=== PATIENT | male | born 1985 | race African-American/Black ===

== ENCOUNTER 2017-09-16 05:56 | Inpatient (IN) | payer OTHER ==
[2017-09-08 11:47] VITALS: BMI 35.2
--- NOTE | 2017-09-15 08:44 | HP ---
Admitting History and Physical - Admission History of Present Illness: Patient is a 32 y/o obese male with a past medical history of developmental delay, PNA (intubated hospitalizated at [facility] for 1 month) asthma, eczema, and hypoparathyroidism. Patient has a past surgical history of bilateral patella re-allignment. Patient is scheduled for an elective right knee supracondylar osteotomy scheduled lola Vogel 09/16/17. History Source: Patient Limitations to Obtaining History: No Limitations - Smoking History Smoking history: Never smoked - Alcohol/Substance Use Hx Alcohol Use: Yes (occasional) History of Substance Use: reports: None - Social History Usual Living Arrangement: Yes: With Parent ADL: Independent Occupation: disabled Home Medications - Allergies Allergies/Adverse Reactions: Allergies Allergy/AdvReac Type Severity Reaction Status Date / Time Penicillins Allergy Rash Verified 09/08/17 11:31 piperacillin Allergy Rash Verified 09/08/17 11:56 - Home Medications Home Medications: Ambulatory Orders Albuterol 0.083% Nebulizer Krista [Ventolin 0.083%] 1 neb NEB QID 09/08/17 Atorvastatin Ca [Lipitor] 10 mg PO HS 09/08/17 Budesonide/Formeterol Fumarate [SYMBICORT 160/4.5mcg -] 1 inh PO DAILY 09/08/17 Calcitriol [Rocaltrol -] 0.75 mcg PO DAILY 09/08/17 Calcium Carbonate 1,250 mg PO DAILY 09/08/17 Ipratropium/Albuterol Sulfate [Combivent Respimat Inhal Viola] 4 gm IH DAILY 05/24 Tramadol HCl 50 mg PO Q4H PRN 09/08/17 Family Disease History - Family Disease History Family History: Denies Review of Systems - Review of Systems Constitutional: reports: No Symptoms Eyes: reports: No Symptoms HENT: reports: No Symptoms Neck: reports: No Symptoms Cardiovascular: reports: No Symptoms Respiratory: reports: No Symptoms Gastrointestinal: reports: No Symptoms Genitourinary: reports: No Symptoms Musculoskeletal: reports: No Symptoms Integumentary: reports: No Symptoms Neurological: reports: No Symptoms Endocrine: reports: No Symptoms Hematology/Lymphatic: reports: No Symptoms Psychiatric: reports: No Symptoms Physical Examination Constitutional: Yes: Well Nourished, No Distress, Calm Eyes: Yes: WNL, Conjunctiva Clear, EOM Intact HENT: Yes: WNL, Atraumatic, Normocephalic Neck: Yes: WNL, Supple, Trachea Midline Cardiovascular: Yes: WNL, Regular Rate and Rhythm, S1, S2 Respiratory: Yes: WNL, Regular, CTA Bilaterally Gastrointestinal: Yes: WNL, Normal Bowel Sounds, Soft ...Rectal Exam: Yes: Deferred Renal/: Yes: WNL Musculoskeletal: Yes: Joint Stiffness, Other (right knee pain reports history of "buckling" of right knee) Extremities: Yes: Deformity (right knee deformity) Edema: No Peripheral Pulses WNL: No Integumentary: Yes: WNL Neurological: Yes: WNL, Alert, Oriented ...Motor Strength: WNL Psychiatric: Yes: WNL, Alert, Oriented Labs: reviewed 08/18/17 Imaging - Results EKG: Image Reviewed, Other (nsr) Assessment/Plan 1) MS right knee pain w/deformity - pending scheduled surgery 09/16/17, right supracondylar osteomy 2) asthma - reports excerbation in fall and spring - continue symbicort and albuterol prn 3) cardiovascular hyperlipidemia - continue lipitor - cardiology notes resolved from patient's private furniture fabricator, Dr Gilmore, last nuclear stress test 2014 wnl pt is medically optimized for procedure
[2017-09-16] MEDS ORDERED: DEXAMETHASONE SOD PHOSPHATE/PF 10 MG/ML SDV ONE (07:39)
[2017-09-16] MEDS ORDERED: BUPIVACAINE HCL/PF (5 MG/ML) 30 ML VIAL IJ ONE (07:39)
[2017-09-16] MEDS ORDERED: MIDAZOLAM HCL 2 MG/2 ML SINGLE DOSE VIAL ONE (07:39)
[2017-09-16] MEDS ORDERED: VANCOMYCIN 1,000 MG VIAL (RESTRICTED TO ID ONLY) ONE (07:44)
[2017-09-16] MEDS ORDERED: DEXAMETHASONE SOD PHOSPHATE 4 MG/1 ML VIAL ONE (09:10)
[2017-09-16] MEDS ORDERED: TRANEXAMIC ACID 1000 MG/10 ML VIAL ONE ×2 (09:10→11:11)
[2017-09-16] MEDS ORDERED: ONDANSETRON 4 MG/2 ML VIAL ONE (09:10)
[2017-09-16] MEDS ORDERED: BENZOIN/ALOE VERA/STORAX/TOLU 58 ML BOTTLE ONE (11:36)
[2017-09-16] MEDS ORDERED: ONDANSETRON 4 MG/2 ML VIAL IVPUSH PRN (12:09)
[2017-09-16] MEDS ORDERED: oxyCODONE HCL 5 MG TABLET PO PRN (12:10)
[2017-09-16] MEDS ORDERED: LACTATED RINGERS SOLUTION 1,000 ML IV SCH ×2 (12:15→12:30)
--- NOTE | 2017-09-16 12:17 | OP ---
Operative Note - Note: Operative Date: 09/16/17 Pre-Operative Diagnosis: 1. Right knee valgus deformity. 2. Recurrent right lateral patellar instability Operation: Distal femoral medial closing wedge osteotomy with instrumentation. Implants: Synthes 90 degree hip Blade Plate, 65mm length, 15mm offset Post-Operative Diagnosis: Same as Pre-op Surgeon: Wesley Vogel Ladle Liner: Al Vogel Anesthesiologist/GUN PROFILER: Pearl Gutierrez Anesthesia: Spinal Specimens Removed: Bone Estimated Blood Loss (mls): 0 Drains & Tubes with Location: 1 x deep HemoVac Fluid Volume Replaced (mls): 1,000 Operative Report Dictated: Yes
[2017-09-16] MEDS ORDERED: MAG HYDROX/AL HYDROX/SIMETH 30 ML UNIT-DOSE CUP PO PRN (12:20)
[2017-09-16] MEDS ORDERED: MAGNESIUM HYDROX 2400MG/30ML ORAL SUSPENSION 30 ML CUP PO PRN (12:20)
--- NOTE | 2017-09-16 12:20 | PN ---
Progress Note (short form) - Note Progress Note: 32M s/p right distal femoral medial closing wedge osteotomy with instrumentation POD #0. -Pain control: NAIL MAKER. -DVT PPx: - Chemical: ASA 81mg PO BID x 6 weeks - Mechanical: NEIL's, SCD's. -Incentive spirometry. -PT/OT/Rehab, OOB. -NWB RLE. -Gentle ROM R knee OK. -f/u drain output. -f/u post-op trial of void. -f/u AM labs. -Will order [place] brace for patient. -Care per medical hospitalist team. -Discharge planning: f/u Thursday09/25/2017 at [facility] [place] office; call for appointment; . -Will follow. Wesley Vogel MD (Orthopaedic Surgery).
[2017-09-16] MEDS: ACETAMINOPHEN 325 MG TABLET (FP) PO SCH ×2 (12:30→18:05)
[2017-09-16] MEDS: oxyCODONE HCL 5 MG TABLET PO PRN ×2 (16:28→21:38)
[2017-09-16] MEDS ORDERED: VANCOMYCIN 1,500 MG in DEXTROSE 5%-WATER - 500 ML IVPB ONE (20:00)
[2017-09-16] MEDS: oxyCODONE HCL 10 MG SUSTAINED ACTING TABLET PO SCH (21:35)
[2017-09-16] MEDS: ASPIRIN 81 MG CHEWABLE TABLETS PO SCH (21:35)
[2017-09-16] MEDS: GABAPENTIN 300 MG CAPSULE (FP) PO SCH (21:35)
[2017-09-16] MEDS: SENNOSIDES/DOCUSATE COMBO (SENNA PLUS) TABLET (UD) PO SCH (21:35)
[2017-09-17] MEDS: ACETAMINOPHEN 325 MG TABLET (FP) PO SCH ×4 (00:16→17:48)
[2017-09-17] MEDS: oxyCODONE HCL 5 MG TABLET PO PRN ×2 (03:26→17:51)
[2017-09-17] MEDS ORDERED: SODIUM CHLORIDE 500 ML IV STA (05:38)
--- NOTE | 2017-09-17 05:44 | HOSP ---
Subjective - Review of Symptoms Events since last encounter: Hospitalist Encounter Notified via telephone by the RN that the patient's HR is in the 120's Patient is at the [facility] Assessment Patient is a 32 y/o obese male with a past medical history of developmental delay, PNA (intubated hospitalizated at [facility] for 1 month) asthma, eczema, and hypoparathyroidism. s/p right knee supracondylar osteotomy POD#1 Plan: Stat EKG Rectal temp Per RN, EKG showed ST with non-specific T waves Rectal temp 100.6 Ordered: NS 500ml bolus Blood Cultures x2 Urine Culture UA Lactic Acid Cardiac monitoring Will inform daytime METAL RECLAMATION KETTLE TENDER provider of overnight events, for f/u Physical Examination Vital Signs: Vital Signs Temperature 99.4 F 09/17/17 04:00 Pulse Rate 124 H 09/17/17 04:00 Respiratory Rate 20 09/17/17 04:00 Blood Pressure 133/58 09/17/17 04:00 O2 Sat by Pulse Oximetry (%) 96 09/16/17 23:36 Labs: Current Medications Generic Name Dose Route Start Last Admin Trade Name Freq PRN Reason Stop Dose Admin Acetaminophen 650 mg 09/16/17 12:30 09/17/17 00:16 Tylenol - PO 09/19/17 12:29 650 mg Q6H EUNICE Administration Al Hydroxide/Mg Hydroxide 30 ml 09/16/17 12:20 Mylanta Oral Suspension - PO Q4H PRN DYSPEPSIA Aspirin 81 mg 09/16/17 22:00 09/16/17 21:35 Asa - PO 81 mg BID EUNICE Administration Budesonide/Formoterol Fumarate 1 puff 09/17/17 10:00 Symbicort 160/4.5mcg - IH DAILY EUNICE Fentanyl 50 mcg 09/16/17 12:09 Sublimaze Injection - IVPUSH [id number] PRN PAIN-PACU ORDER X 4 DOSES ONLY Gabapentin 300 mg 09/16/17 22:00 09/16/17 21:35 Neurontin - PO 300 mg BID EUNICE Administration Lactated Ringer's 1,000 mls @ 125 mls/hr 09/16/17 12:30 09/16/17 15:17 Lactated Ringers Solution IV 09/17/17 06:00 Not Given ASDIR EUNICE Sodium Chloride 500 mls @ 500 mls/hr 09/17/17 05:38 Normal Saline - IV 09/17/17 06:37 ASDIR STA Magnesium Hydroxide 30 ml 09/16/17 12:20 Milk Of Magnesia - PO PRN PRN CONSTIPATION Non-Formulary Medication 4 gm 09/17/17 10:00 Ipratropium/Albuterol Sulfate [Combivent Respimat 20-100 Mcg] IH DAILY EUNICE Ondansetron HCl 4 mg 09/16/17 12:20 Zofran Injection IVPUSH Q6H PRN NAUSEA Oxycodone HCl 5 mg 09/16/17 12:10 09/16/17 12:30 Roxicodone - PO 5 mg Q3H PRN Administration PAIN LEVEL 1-5 Oxycodone HCl 10 mg 09/16/17 12:10 09/17/17 03:26 Roxicodone - PO 10 mg Q3H PRN Administration PAIN LEVEL 6-10 Oxycodone HCl 10 mg 09/16/17 22:00 09/16/17 21:35 Oxycontin - PO 09/19/17 12:10 10 mg BID EUNICE Administration Pantoprazole Sodium 40 mg 09/17/17 10:00 Protonix - PO DAILY [facility] Senna/Docusate Sodium 2 tablet 09/16/17 22:00 09/16/17 21:35 Pericolace - PO 2 tablet BID EUNICE Administration Intake & Output 09/14/17 09/15/17 09/16/17 09/17/17 23:59 23:59 23:59 23:59 Intake Total 1600 Output Total 950 380 Balance 650 -380 Weight 102.058 kg Last Vital Signs Temp Pulse Resp BP Pulse Ox 99.4 F 124 H 20 133/58 96 09/17/17 04:00 09/17/17 04:00 09/17/17 04:00 09/17/17 04:00 09/16/17 23:36
[2017-09-17 08:58] LABS: ANION GAP 9 (8-16); BLOOD UREA NITROGEN 10 mg/dl (7-18); CALCIUM 7.8 mg/dl (8.4-10.2); CHLORIDE 97 mmol/L (98-107); CO2 27 mmol/L (22-28); GLUCOSE,RANDOM 166 mg/dl (74-106); POTASSIUM 3.5 mmol/L (3.5-5.1); SODIUM 133 mmol/L (136-145)
--- NOTE | 2017-09-17 09:06 | CONSULT ---
Consultation: REQUESTING PROVIDER: Dr Vogel CONSULT REQUEST: We have been asked to medically evaluate this patient for medical management. HISTORY OF PRESENT ILLNESS: Patient is a 32 y/o male with a past medical history of developmental delay, PNA (intubated hospitalizated at [facility] for 1 month) asthma, eczema, and hypoparathyroidism. Patient has a past surgical history of bilateral patella re-allignment. Patient underwent an elective right knee supracondylar osteotomy, Dr Vogel post op day 1. REVIEW OF SYSTEMS: CONSTITUTIONAL: Absent: fever, chills, diaphoresis, generalized weakness, malaise, loss of appetite, weight change HEENT: Absent: rhinorrhea, nasal congestion, throat pain, throat swelling, difficulty swallowing, mouth swelling, ear pain, eye pain, visual changes CARDIOVASCULAR: Absent: chest pain, syncope, palpitations, irregular heart rate, lightheadedness , peripheral edema RESPIRATORY: Absent: cough, shortness of breath, dyspnea with exertion, orthopnea, wheezing, stridor, hemoptysis GASTROINTESTINAL: Absent: abdominal pain, abdominal distension, nausea, vomiting, diarrhea, constipation, melena, hematochezia GENITOURINARY: Absent: dysuria, frequency, urgency, hesitancy, hematuria, flank pain, genital pain MUSCULOSKELETAL: present: right knee pain Absent: myalgia, arthralgia, joint swelling, back pain, neck pain SKIN: Absent: rash, itching, pallor HEMATOLOGIC/IMMUNOLOGIC: Absent: easy bleeding, easy bruising, lymphadenopathy, frequent infections ENDOCRINE: Absent: unexplained weight gain, unexplained weight loss, heat intolerance, cold intolerance NEUROLOGIC: Absent: headache, focal weakness or paresthesias, dizziness, unsteady gait, seizure, mental status changes, bladder or bowel incontinence PSYCHIATRIC: Absent: anxiety, depression, suicidal or homicidal ideation, hallucinations. PHYSICAL EXAMINATION Vital Signs - 24 hr 09/16/17 09/16/17 09/16/17 12:03 12:05 12:10 Temperature 98 F Pulse Rate 83 87 80 Respiratory 14 16 18 Rate Blood Pressure 119/68 137/85 131/78 O2 Sat by Pulse 99 100 100 Oximetry (%) 09/16/17 09/16/17 09/16/17 12:15 12:30 12:45 Temperature Pulse Rate 90 84 87 Respiratory 18 18 18 Rate Blood Pressure 120/72 120/87 131/84 O2 Sat by Pulse 100 100 100 Oximetry (%) 09/16/17 09/16/17 09/16/17 13:00 13:15 13:30 Temperature Pulse Rate 89 87 89 Respiratory 18 18 Rate Blood Pressure 132/80 122/76 126/83 O2 Sat by Pulse 95 95 95 Oximetry (%) 09/16/17 09/16/17 09/16/17 13:45 13:48 15:08 Temperature 98.6 F Pulse Rate 87 87 94 H Respiratory 18 18 18 Rate Blood Pressure 129/70 129/70 142/79 O2 Sat by Pulse 99 98 Oximetry (%) 09/16/17 09/16/17 09/16/17 20:00 20:04 20:05 Temperature 98.7 F Pulse Rate 112 H Respiratory 20 18 Rate Blood Pressure 140/62 O2 Sat by Pulse 97 98 Oximetry (%) 09/16/17 09/17/17 09/17/17 23:36 04:00 05:30 Temperature 99.0 F 99.4 F 100.6 F H Pulse Rate 114 H 124 H Respiratory 18 20 Rate Blood Pressure 115/49 133/58 O2 Sat by Pulse 96 Oximetry (%) 09/17/17 06:17 Temperature 100.5 F H Pulse Rate 120 H Respiratory Rate Blood Pressure 131/62 O2 Sat by Pulse 97 Oximetry (%) GENERAL: Awake, alert, and fully oriented, in no acute distress. HEAD: Normal with no signs of trauma. EYES: Pupils equal, round and reactive to light, extraocular movements intact, sclera anicteric, conjunctiva clear. No lid lag. EARS, NOSE, THROAT: Ears normal, nares patent, oropharynx clear without exudates. Moist mucous membranes. NECK: Normal range of motion, supple without lymphadenopathy, JVD, or masses. LUNGS: Breath sounds equal, clear to auscultation bilaterally. No wheezes, and no crackles. No accessory muscle use. HEART: Regular rate and rhythm, normal S1 and S2 without murmur, rub or gallop. ABDOMEN: Soft, nontender, not distended, normoactive bowel sounds, no guarding, no rebound, no masses. No hepatomegaly or splenomegaly. MUSCULOSKELETAL: Normal range of motion at all joints. No bony deformities or tenderness. No CVA tenderness. UPPER EXTREMITIES: 2+ pulses, warm, well-perfused. No cyanosis. No clubbing. Cap refill <2 seconds. No peripheral edema. LOWER EXTREMITIES: 2+ pulses, warm, well-perfused. No calf tenderness. No peripheral edema. right lower extremity, SCD/NEIL, hemovac drain intact, scan drainage noted NEUROLOGICAL: Cranial nerves II-XII intact. Normal speech. Normal gait. PSYCHIATRIC: Cooperative. Good eye contact. Appropriate mood and affect. SKIN: Warm, dry, normal turgor, no rashes or lesions noted. Active Medications Generic Name Dose Route Start Last Admin Trade Name Freq PRN Reason Stop Dose Admin Acetaminophen 650 mg 09/16/17 12:30 09/17/17 05:35 Tylenol - PO 09/19/17 12:29 650 mg Q6H EUNICE Administration Al Hydroxide/Mg Hydroxide 30 ml 09/16/17 12:20 Mylanta Oral Suspension - PO Q4H PRN DYSPEPSIA Aspirin 81 mg 09/16/17 22:00 09/16/17 21:35 Asa - PO 81 mg BID EUNICE Administration Budesonide/Formoterol Fumarate 1 puff 09/17/17 10:00 Symbicort 160/4.5mcg - IH DAILY [facility] Gabapentin 300 mg 09/16/17 22:00 09/16/17 21:35 Neurontin - PO 300 mg BID [facility] Administration Magnesium Hydroxide 30 ml 09/16/17 12:20 Milk Of Magnesia - PO PRN PRN CONSTIPATION Non-Formulary Medication 4 gm 09/17/17 10:00 Ipratropium/Albuterol Sulfate [Combivent Respimat 20-100 Mcg] IH DAILY [facility] Ondansetron HCl 4 mg 09/16/17 12:20 Zofran Injection IVPUSH Q6H PRN NAUSEA Oxycodone HCl 5 mg 09/16/17 12:10 09/16/17 12:30 Roxicodone - PO 5 mg Q3H PRN Administration PAIN LEVEL 1-5 Oxycodone HCl 10 mg 09/16/17 12:10 09/17/17 03:26 Roxicodone - PO 10 mg Q3H PRN Administration PAIN LEVEL 6-10 Oxycodone HCl 10 mg 09/16/17 22:00 09/16/17 21:35 Oxycontin - PO 09/19/17 12:10 10 mg BID [facility] Administration Pantoprazole Sodium 40 mg 07/12/18 10:00 Protonix - PO DAILY EUNICE Senna/Docusate Sodium 2 tablet 09/16/17 22:00 09/16/17 21:35 Pericolace - PO 2 tablet BID EUNICE Administration ASSESSMENT/PLAN: 1) MS s/p right distal femoral medial closing wedge osteotomy with instrumentation, POD #1 - strict monitoring of intake and output from hemovac drain, monitor hgb - prn pain medication - physical therapy as per orthopedist, non weight bearing as tolerated 2) cardiovascular tachycardia - pt is asymptomatic, may be secondary to low grade temp, will defer antibiotics, follow up blood and urine cultures. - strict monitoring hyperlipidemia - continue lipitor - cardiology notes resolved from patient's private prison teacher, Dr Gilmore, last nuclear stress test 2015 wnl 3) pulm asthma - no acute excerbation at this time, continue home dose combivent -strict monitoring of spo2 4) heme/onc lactic acidosis - secondary to hypovolemia, 1 liter of ns given, repeat lactic acid at 1300 Dispo: We will continue to follow the patient. Thank you for this consultative opportunity. Visit type - Emergency Visit Emergency Visit: No - New Patient This patient is new to me today: No - Critical Care Critical Care patient: No
[2017-09-17 09:25] LABS: HEMATOCRIT 31.5 % (35.4-49); HEMOGLOBIN 10.7 GM/dl (11.7-16.9); MCH 28.2 pg (25.7-33.7); MCHC 33.8 g/dl (32.0-35.9); MEAN CELL VOLUME 83.4 fl (80-96); MEAN PLT VOLUME 10.9 fl (7.5-11.1); PLATELET COUNT 147 K/MM3 (134-434); RBC 3.78 M/mm3 (4.00-5.60); RDW 17.7 % (11.9-15.9); WHITE BLOOD COUNT 12.5 K/mm3 (4.0-10.8)
[2017-09-17] MEDS ORDERED: PT OWN MED DRAWER 7, Y5N ONE (09:25)
[2017-09-17] MEDS: SENNOSIDES/DOCUSATE COMBO (SENNA PLUS) TABLET (UD) PO SCH ×2 (09:28→21:53)
[2017-09-17] MEDS: GABAPENTIN 300 MG CAPSULE (FP) PO SCH ×2 (09:28→21:53)
[2017-09-17] MEDS: ASPIRIN 81 MG CHEWABLE TABLETS PO SCH ×2 (09:28→21:53)
[2017-09-17] MEDS: PANTOPRAZOLE 40 MG TABLET (FP) PO SCH (09:28)
[2017-09-17] MEDS: oxyCODONE HCL 10 MG SUSTAINED ACTING TABLET PO SCH ×2 (09:29→21:53)
[2017-09-17] MEDS: BUDESONIDE/FORMETEROL FUMARATE 160/4.5 mcg INHALER IH SCH (09:39)
[2017-09-17] MEDS ORDERED: SODIUM CHLORIDE 1,000 ML IV STA (09:43)
[2017-09-17] MEDS ORDERED: ACETAMINOPHEN 1000 MG/100 ML VIAL (NON FORMULARY) IVPB ONE (10:00)
[2017-09-17] MEDS ORDERED: PATIENT'S OWN MEDICATION (NON-FORMULARY) (Ipratropium/Albuterol Sulfate [Combivent Respima IH SCH (10:00)
[2017-09-17 10:28] LABS: PH,URINE 6.5 (4.5-8); URINE APPEARANCE Clear; URINE BILIRUBIN Negative (NEGATIVE); URINE COLOR Amber; URINE GLUCOSE (UA) Negative (NEGATIVE); URINE KETONE Negative (NEGATIVE); URINE LEUK ESTERASE Negative (NEGATIVE); URINE NITRITE Negative (NEGATIVE); URINE PROTEIN Negative (NEGATIVE); URINE UROBILINOGEN 0.2 (0.2-1.0)
--- NOTE | 2017-09-17 13:18 | PN ---
Progress Note (short form) - Note Progress Note: 32M POD1 s/p R knee supracondylar osteotomy under spinal anesthetic with peripheral nerve blocks for post operative pain relief. Pt states that pain is well controlled and does not report any anesthetic complications. AVSS. Motor and sensory function intact in bilateral lower extremities. Continue current regimen.
[2017-09-17] MEDS ORDERED: METOPROLOL TARTRATE 25 MG TABLET (FP) PO ONE (20:55)
[2017-09-17] MEDS ORDERED: SODIUM CHLORIDE 1,000 ML IV SCH (21:00)
[2017-09-18] MEDS: ACETAMINOPHEN 325 MG TABLET (FP) PO SCH ×4 (00:08→18:32)
[2017-09-18] MEDS ORDERED: SODIUM CHLORIDE 500 ML IV STA ×2 (00:33→05:55)
[2017-09-18] MEDS: SODIUM CHLORIDE 1,000 ML IV SCH (03:40)
[2017-09-18] MEDS: ONDANSETRON 4 MG/2 ML VIAL IVPUSH PRN ×2 (05:25→07:45)
--- NOTE | 2017-09-18 05:42 | HOSP ---
Subjective - Review of Symptoms Events since last encounter: Hospitalist Encounter Was notified by the nurse that the patient is febrile 103.2 with a HR 150 EKG as ordered, Dr. Solano from the ED reviewed EKG and reports no change compared to prior study Per RN he informed Dr. Vogel of patient's HR and Temp, per RN no antibiotics at this time Assessment Patient is a 32 y/o obese male with a past medical history of developmental delay, PNA (intubated hospitalizated at [facility] for 1 month) asthma, eczema, and hypoparathyroidism. s/p right knee supracondylar osteotomy POD#2 Plan: NS bolus Transfer patient to Telemetry at the [facility] ID consult placed prior-pending Considered ABX, in lieu of Initial Lactate 3.6, WBC 12.5 will defer to Ortho and ID RN to inform Ortho of the transfer Physical Examination Vital Signs: Vital Signs Temperature 103.0 F H 09/18/17 05:25 Pulse Rate 147 H 09/18/17 05:25 Respiratory Rate 18 09/18/17 05:25 Blood Pressure 114/54 09/18/17 05:25 O2 Sat by Pulse Oximetry (%) 98 09/18/17 05:25 Labs: CBC, BMP 09/17/17 07:30 09/17/17 07:30
[2017-09-18] MEDS ORDERED: PT OWN MED DRAWER 7, Y5N ONE (08:35)
--- NOTE | 2017-09-18 08:43 | EKG ---
Test Reason : Blood Pressure : / mmHG Vent. Rate : 135 BPM Atrial Rate : 135 BPM P-R Int : 120 ms QRS Dur : 084 ms QT Int : 306 ms P-R-T Axes : 038 005 015 degrees QTc Int : 459 ms SINUS TACHYCARDIA NONSPECIFIC T WAVE ABNORMALITY ABNORMAL ECG NO PREVIOUS ECGS AVAILABLE Confirmed by HIPOLITO FRANCISCO MD ([id number]) on 09/18/2017 8:43:13 AM Referred By: Wesley Vogel Confirmed By:HIPOLITO FRANCISCO MD
[2017-09-18 09:03] LABS: BASO % 0.1 % (0-2.0); EOS % 2.2 % (0-4.5); HEMATOCRIT 35.4 % (35.4-49); HEMOGLOBIN 11.4 GM/dL (11.7-16.9); LYMPH % 3.4 % (8-40); MCH 26.9 pg (25.7-33.7); MCHC 32.3 g/dl (32.0-35.9); MEAN CELL VOLUME 83.3 fl (80-96); MEAN PLT VOLUME 10.7 fl (7.5-11.1); MONO % 3.5 % (3.8-10.2); NEUT % 90.8 % (42.8-82.8); PLATELET COUNT 165 K/MM3 (134-434); RBC 4.25 M/mm3 (4.00-5.60); RDW 19.1 % (11.9-15.9)
[2017-09-18 09:10] LABS: ALBUMIN 2.7 g/dl (3.4-5.0); ANION GAP 10 (8-16); BLOOD UREA NITROGEN 11 mg/dL (7-18); CALCIUM 7.7 mg/dL (8.5-10.1); CHLORIDE 104 mmol/L (98-107); CO2 27 mmol/L (21-32); GLUCOSE,RANDOM 102 mg/dL (74-106); POTASSIUM 3.7 mmol/L (3.5-5.1); SGOT/AST 14 U/L (15-37); SGPT/ALT 18 U/L (12-78); SODIUM 141 mmol/L (136-145)
[2017-09-18 09:12] LABS: BILIRUBIN,TOTAL 0.4 mg/dL (0.2-1.0); TOT PROT 5.9 g/dl (6.4-8.2)
[2017-09-18 09:13] LABS: ALK PHOS 56 U/L (45-117)
[2017-09-18] MEDS: SENNOSIDES/DOCUSATE COMBO (SENNA PLUS) TABLET (UD) PO SCH ×2 (09:39→21:02)
[2017-09-18] MEDS: PANTOPRAZOLE 40 MG TABLET (FP) PO SCH (09:39)
[2017-09-18] MEDS: oxyCODONE HCL 10 MG SUSTAINED ACTING TABLET PO SCH ×2 (09:39→21:02)
[2017-09-18] MEDS: ASPIRIN 81 MG CHEWABLE TABLETS PO SCH ×2 (09:40→21:02)
[2017-09-18] MEDS: GABAPENTIN 300 MG CAPSULE (FP) PO SCH ×2 (09:40→21:02)
--- NOTE | 2017-09-18 09:55 | PN ---
Progress Note (short form) - Note Progress Note: Subjective: The patient was seen and examined at the bedside, he has no complaints of knee pain. He reports itching. He denies any chest pain Tachycardia noted Patient was placed on 2L NC for desaturation this morning Tmax 103.1 Chest CTA negative for PE Chest X-ray with no acute pathology Blood cultures pending Current Medications Generic Name Dose Route Start Last Admin Trade Name Freq PRN Reason Stop Dose Admin Acetaminophen 650 mg 09/16/17 12:30 09/18/17 13:32 Tylenol - PO 09/19/17 12:29 650 mg Q6H EUNICE Administration Al Hydroxide/Mg Hydroxide 30 ml 09/16/17 12:20 Mylanta Oral Suspension - PO Q4H PRN DYSPEPSIA Aspirin 81 mg 09/16/17 22:00 09/18/17 09:40 Asa - PO 81 mg BID EUNICE Administration Budesonide/Formoterol Fumarate 1 puff 09/17/17 10:00 09/18/17 11:25 Symbicort 160/4.5mcg - IH Not Given DAILY EUNICE Gabapentin 300 mg 09/16/17 22:00 09/18/17 09:40 Neurontin - PO 300 mg BID EUNICE Administration Sodium Chloride 1,000 mls @ 100 mls/hr 09/18/17 04:00 09/18/17 03:40 Normal Saline - IV 100 mls/hr ASDIR EUNICE Administration Magnesium Hydroxide 30 ml 09/16/17 12:20 Milk Of Magnesia - PO PRN PRN CONSTIPATION Non-Formulary Medication 4 gm 09/17/17 10:00 Ipratropium/Albuterol Sulfate [Combivent Respimat 20-100 Mcg] IH DAILY EUNICE Ondansetron HCl 4 mg 09/16/17 12:20 09/18/17 05:25 Zofran Injection IVPUSH 4 mg Q6H PRN Administration NAUSEA Oxycodone HCl 5 mg 09/16/17 12:10 09/16/17 12:30 Roxicodone - PO 5 mg Q3H PRN Administration PAIN LEVEL 1-5 Oxycodone HCl 10 mg 09/16/17 12:10 09/17/17 17:51 Roxicodone - PO 10 mg Q3H PRN Administration PAIN LEVEL 6-10 Oxycodone HCl 10 mg 09/16/17 22:00 09/18/17 09:39 Oxycontin - PO 09/19/17 12:10 Not Given BID EUNICE Pantoprazole Sodium 40 mg 09/17/17 10:00 09/18/17 09:39 Protonix - PO 40 mg DAILY EUNICE Administration Senna/Docusate Sodium 2 tablet 09/16/17 22:00 09/18/17 09:39 Pericolace - PO 2 tablet BID EUNICE Administration Objective: Vital Signs Period Temp Pulse Resp BP Sys/Ortiz Pulse Ox Last 24 Hr 98.0 F-103.1 F 84-150 17-20 102-143/54-82 97-100 Physical Exam: General: NAD, A&Ox3 Lungs: CTA bilaterally Heart: Tachycardia, S1S2 Abd: Soft, non-tender, non-distended. Normoactive bowel sounds Ext: Right knee dressing and drain in place. Warm, well-perfused. 2+ DP/PT bilaterally Skin: Patient is itching. No rash, hives noted CBCD WBC 15.0 K/mm3 (4.0-10.0) H 09/18/17 08:25 RBC 4.25 M/mm3 (4.00-5.60) 09/18/17 08:25 Hgb 11.4 GM/dL (11.7-16.9) L 09/18/17 08:25 Hct 35.4 % (35.4-49) 09/18/17 08:25 MCV 83.3 fl (80-96) 09/18/17 08:25 MCHC 32.3 g/dl (32.0-35.9) 09/18/17 08:25 RDW 19.1 % (11.9-15.9) H 09/18/17 08:25 Plt Count 165 K/MM3 (134-434) 09/18/17 08:25 MPV 10.7 fl (7.5-11.1) 09/18/17 08:25 CMP Sodium 141 mmol/L (136-145) 09/18/17 08:25 Potassium 3.7 mmol/L (3.5-5.1) 09/18/17 08:25 Chloride 104 mmol/L (98-107) 09/18/17 08:25 Carbon Dioxide 27 mmol/L (21-32) 09/18/17 08:25 Anion Gap 10 (8-16) 09/18/17 08:25 BUN 11 mg/dL (7-18) 09/18/17 08:25 Creatinine 1.0 mg/dL (0.7-1.3) 09/18/17 08:25 Creat Clearance w eGFR > 60 (>60) 09/18/17 08:25 Random Glucose 102 mg/dL (74-106) 09/18/17 08:25 Calcium 7.7 mg/dL (8.5-10.1) L 09/18/17 08:25 Total Bilirubin 0.4 mg/dL (0.2-1.0) 09/18/17 08:25 AST 14 U/L (15-37) L 09/18/17 08:25 ALT 18 U/L (12-78) 09/18/17 08:25 Alkaline Phosphatase 56 U/L (45-117) 09/18/17 08:25 Total Protein 5.9 g/dl (6.4-8.2) L 09/18/17 08:25 Albumin 2.7 g/dl (3.4-5.0) L 09/18/17 08:25 Microbiology 09/17/17 08:01 Blood - Peripheral Venous Blood Culture - Preliminary NO GROWTH OBTAINED AFTER 24 HOURS, INCUBATION TO CONTINUE FOR 4 DAYS. 09/17/17 08:01 Blood - Peripheral Venous Blood Culture - Preliminary NO GROWTH OBTAINED AFTER 24 HOURS, INCUBATION TO CONTINUE FOR 4 DAYS. Assessment: This is a 32 year old male with PMHx of developmental delay, eczema , asthma, pna (intubated in the past), hypoparathyroidism, who had elective right knee supracondylar osteotomy on 09/16/17 Plan: 1) Post-op fever, tachycardia, leukocytosis - Per ID, less likely related to infection - Appears well - Continue to monitor off antibiotics at this time. If worsening condition, will add Vanco and Cefepime per ID - Chest CTA with no evidence of pulmonary embolism - F/u ECHO - Appreciate ID consult - Appreciate cardiology consult 2) S/p right distal femoral medial closing wedge osteotomy - POD#2 - Monitor drain output - ASA 81mg po bid x6 week for chemical DVT prophylaxis - Gentle ROM to right knee - Non-weight bearing right lower extremity - Bledoe brace - Pain management - Appreciate surgery consult 3) Asthma - Continue Symbicort 4) F/E/N: - Monitor electrolytes - Regular diet 5) Prophylaxis: - SCDs bilaterally - ASA 81mg po bid for DVT prophylaxis 6) Dispo: - Requires continued inpatient care CODE STATUS: FULL CODE Visit type - Emergency Visit Emergency Visit: Yes ED Registration Date: 09/16/17 Care time: The patient presented to the Emergency Department on the above date and was hospitalized for further evaluation of their emergent condition. - New Patient This patient is new to me today: Yes Date on this admission: 09/18/17 - Critical Care Critical Care patient: No
[2017-09-18] MEDS: BUDESONIDE/FORMETEROL FUMARATE 160/4.5 mcg INHALER IH SCH (11:25)
--- NOTE | 2017-09-18 12:05 | CON.CARD ---
Consult Consult Specialty:: Cardiology Reason for Consultation:: tachycardia - History of Present Illness History of Present Illness: Patient is a 32 y/o obese male with a past medical history of developmental delay, PNA (intubated hospitalizated at [facility] for 1 month) asthma, eczema, and hypoparathyroidism. s/p right knee supracondylar osteotomy POD#2 patiend developed fever and tachycardia - History Source History Provided By: Patient, Medical Record - Alcohol/Substance Use Hx Alcohol Use: Yes (occasional) History of Substance Use: reports: None - Smoking History Smoking history: Never smoked Have you smoked in the past 12 months: No - Social History ADL: Independent Occupation: disabled Home Medications - Allergies Allergies/Adverse Reactions: Allergies Allergy/AdvReac Type Severity Reaction Status Date / Time Penicillins Allergy Rash Verified 09/16/17 06:31 piperacillin Allergy Rash Verified 09/16/17 06:31 - Home Medications Home Medications: Ambulatory Orders Atorvastatin Ca [Lipitor] 10 mg PO HS 09/08/17 Budesonide/Formeterol Fumarate [SYMBICORT 160/4.5mcg -] 1 inh PO DAILY 09/08/17 Calcitriol [Rocaltrol -] 0.75 mcg PO DAILY 09/08/17 Calcium Carbonate 1,250 mg PO DAILY 09/08/17 Ipratropium/Albuterol Sulfate [Combivent Respimat Inhal [place]] 4 gm IH DAILY 05/24 Tramadol HCl 50 mg PO Q4H PRN 09/08/17 Review of Systems - Review of Systems Constitutional: reports: No Symptoms Eyes: reports: No Symptoms HENT: reports: No Symptoms Neck: reports: No Symptoms Cardiovascular: reports: No Symptoms Gastrointestinal: reports: No Symptoms Genitourinary: reports: No Symptoms Breasts: reports: No Symptoms Reported Musculoskeletal: reports: No Symptoms Integumentary: reports: No Symptoms Neurological: reports: No Symptoms Endocrine: reports: No Symptoms Hematology/Lymphatic: reports: No Symptoms Psychiatric: reports: No Symptoms Vital Signs: Vital Signs Temperature 101.5 F H 09/18/17 10:00 Pulse Rate 135 H 09/18/17 10:00 Respiratory Rate 18 09/18/17 10:00 Blood Pressure 106/68 09/18/17 10:00 O2 Sat by Pulse Oximetry (%) 97 09/18/17 10:00 Constitutional: Yes: Well Nourished, No Distress, Calm Eyes: Yes: WNL, Conjunctiva Clear, EOM Intact HENT: Yes: WNL, Atraumatic, Normocephalic Neck: Yes: WNL, Supple, Trachea Midline Respiratory: Yes: WNL, Regular, CTA Bilaterally Gastrointestinal: Yes: WNL, Normal Bowel Sounds Renal/: Yes: WNL Cardiovascular: Yes: Tachycardia Heart Sounds: Yes: S1, S2 Musculoskeletal: Yes: WNL Extremities: Yes: WNL Integumentary: Yes: WNL Neurological: Yes: WNL, Alert, Oriented ...Motor Strength: WNL Psychiatric: Yes: WNL, Alert, Oriented - Other Data Labs, Other Data: CBC, BMP 09/18/17 08:25 09/18/17 08:25 Laboratory Tests 09/17/17 09/17/17 09/17/17 07:30 07:30 07:35 WBC 12.5 H RBC 3.78 L Hgb 10.7 L Hct 31.5 L MCV 83.4 MCH 28.2 MCHC 33.8 RDW 17.7 H Plt Count 147 MPV 10.9 Absolute Neuts (auto) Neutrophils % Lymphocytes % Monocytes % Eosinophils % Basophils % Nucleated RBC % Sodium 133 L Potassium 3.5 Chloride 97 L Carbon Dioxide 27 Anion Gap 9 BUN 10 Creatinine 1.0 Creat Clearance w eGFR > 60 Random Glucose 166 H Lactic Acid Calcium 7.8 L Cancelled Total Bilirubin AST ALT Alkaline Phosphatase Total Protein Albumin Urine Color Urine Appearance Urine pH Ur Specific [place] Urine Protein Urine Glucose (UA) Urine Ketones Urine Blood Urine Nitrite Urine Bilirubin Urine Urobilinogen Ur Leukocyte Esterase 09/17/17 09/17/17 09/17/17 08:05 10:20 14:58 WBC RBC Hgb Hct MCV MCH MCHC RDW Plt Count MPV Absolute Neuts (auto) Neutrophils % Lymphocytes % Monocytes % Eosinophils % Basophils % Nucleated RBC % Sodium Potassium Chloride Carbon Dioxide Anion Gap BUN Creatinine Creat Clearance w eGFR Random Glucose Lactic Acid 3.1 H* 1.6 Calcium Total Bilirubin AST ALT Alkaline Phosphatase Total Protein Albumin Urine Color [place] Urine Appearance Clear Urine pH 6.5 Ur Specific [place] 1.025 Urine Protein Negative Urine Glucose (UA) Negative Urine Ketones Negative Urine Blood Negative Urine Nitrite Negative Urine Bilirubin Negative Urine Urobilinogen 0.2 Ur Leukocyte Esterase Negative 09/18/17 09/18/1709/18/18 08:25 08:25 08:25 WBC 15.0 H RBC 4.25 Hgb 11.4 L Hct 35.4 MCV 83.3 MCH 26.9 MCHC 32.3 RDW 19.1 H Plt Count 165 MPV 10.7 Absolute Neuts (auto) 13.6 Neutrophils % 90.8 H Lymphocytes % 3.4 L Monocytes % 3.5 L Eosinophils % 2.2 Basophils % 0.1 Nucleated RBC % 0 Sodium 141 Potassium 3.7 Chloride 104 Carbon Dioxide 27 Anion Gap 10 BUN 11 Creatinine 1.0 Creat Clearance w eGFR > 60 Random Glucose 102 Lactic Acid 1.9 Calcium 7.7 L Total Bilirubin 0.4 AST 14 L ALT 18 Alkaline Phosphatase 56 Total Protein 5.9 L Albumin 2.7 L Urine Color Urine Appearance Urine pH Ur Specific [place] Urine Protein Urine Glucose (UA) Urine Ketones Urine Blood Urine Nitrite Urine Bilirubin Urine Urobilinogen Ur Leukocyte Esterase Imaging - Results Chest X-ray: Image Reviewed (no i/e) EKG: Image Reviewed (s tachy nonspec rep abn) Assessment/Plan s/p knee surgery fever tachycardia r/o infection r/o pe Plan cont telemetry dvt plx id consult abx ctA to r/o PE echo will f/u
--- NOTE | 2017-09-18 13:49 | PN ---
Progress Note, Physician Chief Complaint: ID Febrile since immediate post op period but looks and feels well. Denies any SOB chills urinary comlaints CT was ordered and negative for PE infiltrate - Current Medication List Current Medications: Active Medications Acetaminophen (Tylenol -) 650 mg PO Q6H [facility] Stop: 09/19/17 12:29 Last Admin: 09/18/17 13:32 Dose: 650 mg Al Hydroxide/Mg Hydroxide (Mylanta Oral Suspension -) 30 ml PO Q4H PRN PRN Reason: DYSPEPSIA Aspirin (Asa -) 81 mg PO BID [facility] Last Admin: 09/18/17 09:40 Dose: 81 mg Budesonide/Formoterol Fumarate (Symbicort 160/4.5mcg -) 1 puff IH DAILY [facility] Last Admin: 09/18/17 11:25 Dose: Not Given Gabapentin (Neurontin -) 300 mg PO BID [facility] Last Admin: 09/18/17 09:40 Dose: 300 mg Sodium Chloride (Normal Saline -) 1,000 mls @ 100 mls/hr IV ASDIR [facility] Last Admin: 09/18/17 03:40 Dose: 100 mls/hr Magnesium Hydroxide (Milk Of Magnesia -) 30 ml PO PRN PRN PRN Reason: CONSTIPATION Non-Formulary Medication (Ipratropium/Albuterol Sulfate [Combivent Respimat 20- 100 Mcg]) 4 gm IH DAILY [facility] Ondansetron HCl (Zofran Injection) 4 mg IVPUSH Q6H PRN PRN Reason: NAUSEA Last Admin: 09/18/17 05:25 Dose: 4 mg Oxycodone HCl (Roxicodone -) 5 mg PO Q3H PRN PRN Reason: PAIN LEVEL 1-5 Last Admin: 09/16/17 12:30 Dose: 5 mg Oxycodone HCl (Roxicodone -) 10 mg PO Q3H PRN PRN Reason: PAIN LEVEL 6-10 Last Admin: 09/17/17 17:51 Dose: 10 mg Oxycodone HCl (Oxycontin -) 10 mg PO BID [facility] Stop: 09/19/17 12:10 Last Admin: 09/18/17 09:39 Dose: Not Given Pantoprazole Sodium (Protonix -) 40 mg PO DAILY [facility] Last Admin: 09/18/17 09:39 Dose: 40 mg Senna/Docusate Sodium (Pericolace -) 2 tablet PO BID [facility] Last Admin: 09/18/17 09:39 Dose: 2 tablet - Objective Vital Signs: Vital Signs Temperature 101.5 F H 09/18/17 10:00 Pulse Rate 135 H 09/18/17 10:00 Respiratory Rate 18 09/18/17 10:00 Blood Pressure 106/68 09/18/17 10:00 O2 Sat by Pulse Oximetry (%) 97 09/18/17 10:00 Constitutional: Yes: Obese HENT: Yes: WNL, Atraumatic Neck: Yes: WNL, Supple Cardiovascular: Yes: Tachycardia, S1, S2. No: Murmur Respiratory: Yes: WNL, Regular, CTA Bilaterally Gastrointestinal: Yes: WNL, Normal Bowel Sounds, Soft. No: Tenderness, Tenderness, Epigastrium Extremities: Yes: Other (Right knee dressing brace) Labs: CBC, BMP 09/18/17 08:25 09/18/17 08:25 Problem List - Problems (1) Postoperative fever Code(s): R50.82 - POSTPROCEDURAL FEVER (2) History of knee surgery Code(s): Z98.890 - OTHER SPECIFIED POSTPROCEDURAL STATES Assessment/Plan Microbiology 09/17/17 08:01 Blood - Peripheral Venous Blood Culture - Preliminary NO GROWTH OBTAINED AFTER 24 HOURS, INCUBATION TO CONTINUE FOR 4 DAYS. 09/17/17 08:01 Blood - Peripheral Venous Blood Culture - Preliminary NO GROWTH OBTAINED AFTER 24 HOURS, INCUBATION TO CONTINUE FOR 4 DAYS. Laboratory Tests 09/17/17 09/17/17 09/17/17 08:05 10:20 14:58 WBC Hgb Hct Plt Count Neutrophils % Lymphocytes % Monocytes % BUN Creatinine Lactic Acid 3.1 H* 1.6 Total Bilirubin AST Ur Leukocyte Esterase Negative 09/18/17 09/18/17 09/18/17 08:25 08:25 08:25 WBC 15.0 H Hgb 11.4 L Hct 35.4 Plt Count 165 Neutrophils % 90.8 H Lymphocytes % 3.4 L Monocytes % 3.5 L BUN 11 Creatinine 1.0 Lactic Acid 1.9 Total Bilirubin 0.4 AST 14 L Ur Leukocyte Esterase Assessment Fever so close to surgery seems less likely to be related to infection. He looks well despite fever and tachycardia and is stable hemodynamically and from respiratory point of view. Plan Would observe and give Tylenol prn. IF any change in his condition then would treat with Vancomycn 15mg/kg body weight and Cefepime 2 grs q 8 H ( PCN allergy). Ant FELICIANO
[2017-09-18] MEDS ORDERED: morphine SULFATE 4 MG/ML VIAL IVPUSH ONE (14:30)
[2017-09-18 14:59] LABS: PLATELET ESTIMATE ADEQUATE
--- NOTE | 2017-09-18 15:48 | OP ---
DATE OF OPERATION: 09/16/2017 SURGEON: Wesley Vogel MD PROVIDER NETWORK ANALYST: Al Vogel MD PREOPERATIVE DIAGNOSIS: Valgus right knee with subluxing patella. POSTOPERATIVE DIAGNOSIS: Valgus right knee with subluxing patella. OPERATION PERFORMED: Right supracondylar varization osteotomy (A/O blade plate) . ANESTHESIA: Spinal, with local adductor block and conscious sedation. ANTIBIOTIC: Kefzol 2 g, 1 g vancomycin preop. INDICATIONS: This young gentleman of 32 suffers from increasing valgus deformity of right knee. Left knee is also affected, but not as severely. 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 He has undergone a Bishop realignment osteotomy of the tibial tubercle, and also in combination with this, associated medial capsulorrhaphy of the knee and medial plication and capsular release. This all failed. Patient developed recurrence of subluxation. OPERATION DETAILS: The patient correctly identified, brought to the operating room. Right lower extremity is prepped, free draped in the routine manner with Betadine scrub solution, wiped with alcohol, DuraPrep applied. Timeout was called. Imaging was available for intraoperative evaluation. Under general anesthesia the knee was examined. The patella could easily be dislocated, particularly from 30 degrees of flexion to 90 degrees of flexion. In extension, the subluxation of the patella is readily noted as well. A medial incision was made anterior to the saphenous vein and saphenous nerve. The incision was extended to just beyond the medial aspect of the knee joint and from the distal one-third of the thigh. The fascia was opened, the vastus medialis encountered , and this was dissected off the intramuscular septum and the posterior aspect of the femur to bring about good exposure of the distal femur right to the level of the knee joint. The joint was not actually opened. A small incision was made into the neurovascular bundle. We were not sure whether this appeared to be the vein. A 4-0 Prolene suture was placed into this small rent in the vein. No cautery was used in order to try and block this. The suture sealed the vein completely. Once this had been performed, a power-driven guide under x-ray control was driven from medial to lateral exactly parallel to the joint line. Approximately 0.5 cm above the intercondylar notch level, 3 separate drill holes were made in the medial cortex , and under x-ray control the blade of the blade plate set was seated into the bone bed parallel to the distal femoral joint line, and the jig device to ensure that this would up to the shaft of the femur in terms of the blade plate seating. Once this had been performed, another guide pin was placed 90 degrees to the shaft of the femur on the medial surface. Once the blade plate had been removed, the actual 75 with a 15- mm offset blade was utilized. The first cut made under x-ray control utilizing an oscillating saw was performed, this parallel to the blade approximately 3 cm above the seating of the blade, and a second cut was made parallel to the femoral 90- degree pin to thus create a wedge which was removed from the bone bed without any difficulty. The posterior aspect of the femur was protected from any problems with the saw by placing 2 blunt Hohmanns in the area exactly where the cuts were made. Once the cuts had been completed, the blade of the blade plate was sunk and seated completely all the way. The offset enabled accurate positioning of the plate along the femoral bone bed. This was held with bone holding clamp, and 4 AO screws were placed with dynamic compression being achieved, and under x-ray control, excellent realignment. In order to anteriorize the lateral aspect of the femoral bone bed alongside the trochlear groove, approximately 3 degrees of internal rotation was performed to anteriorize that without disturbing the kinematics of the knee excessively. The acute angle was corrected completely by realignment of the femur out of valgus, and the internal rotation hopefully will block any further dislocation of the patella. Once the entire operation had been completed, the knee was placed through a range of movement and found that the patella was completely stable throughout all ranges of motion. The wounds were thoroughly lavaged. Whatever bone removed was utilized also from additional bone graft to fill in any defect spaces in the osteotomy cuts. The wounds were closed, fascia with 1 Vicryl, subcutaneous 1 and 2-0 Vicryl, skin 3-0 Monocryl, Steri-Strips. Drainage 1/8-inch Hemovac x1. Postop x-rays were excellent. Limb alignment postoperatively was excellent. No complications. MD DON [id number] MTDTy
--- NOTE | 2017-09-18 15:57 | CONS ---
DATE OF CONSULTATION: DATE OF DICTATION: 09/18/2017 HISTORY: This is a 32-year-old male whom I am asked to see day 2 postoperative right knee surgery for evaluation of fever and tachycardia. The patient has a history of developmental delay as well as asthma and hypothyroidism. He has had bilateral patellar alignment surgeries, the first in 2004 and a second surgery on the other knee night 2008. He was electively scheduled for right knee supracondylar ostectomy by Dr. Vogel, and surgery was performed on September 16 after being admitted. The patient had no fever or signs of infection prior to surgery. Postoperatively, almost immediately he began to have high-grade fever between 101-103. On questioning, the patient denied any chills, shortness of breath, chest pain, abdominal pain, or urinary complaints. He has no history of recent travel and essentially lives at home under the care of his mother and father. He does not smoke or use drugs and has no other significant medical history other than asthma, eczema, and hypoparathyroidism. MEDICATIONS: albuterol, Symbicort, Rocaltrol, calcium, Tramadol, and Combivent. ALLERGIES: PENICILLIN with the rash. SOCIAL HISTORY: Nonsmoker. No history of alcohol use. FAMILY HISTORY: Reviewed. Noncontributory. REVIEW OF SYSTEMS: Respiratory: No cough or shortness of breath. Cardiac: No chest pain, history of heart murmur. Gastrointestinal: No abdominal pain, nausea, vomiting, diarrhea. Genitourinary: No dysuria, hematuria, urinary frequency. PHYSICAL EXAMINATION: General: Reveals a pleasant, heavyset male alert in no acute distress. Vital Signs: His temperature is 101.5, pulse 135, blood pressure 106/68, respirations 18. Neck: Supple. Lungs: Diminished breath sounds bilaterally. No rales or rhonchi. Heart: S1, S2. Tachycardic. No audible murmur. Abdomen: Soft and nontender without hepatosplenomegaly. Extremities: Reveal a right knee brace with postoperative dressing. DIAGNOSTIC DATA: White count 15,000, hemoglobin 11.4, platelets 165 with 91% polys, 3 lymphocytes, 3 monocytes. BUN 11, creatinine 1, lactic acid 1.9. Liver enzymes within normal limits. Urinalysis negative leukocyte esterase. CT of the chest obtained earlier today shows no acute infiltrate or evidence of pulmonary embolism. ASSESSMENT: Immediate postoperative fever less likely to be infection given the rapid onset of temperature. Fever may be related to the presence of a hematoma and/or atelectasis. Clinically, he looks stable despite the fever and tachycardia. There is no obvious focus of infection at this time. Leukocytosis noted. Could be stress response to recent surgery within the last 48 hours. I am inclined to observe him off of antibiotics particularly since he had a set of blood cultures drawn yesterday, which are at this time no growth. No obvious source of infection. He is clinically hemodynamically stable as well as stable from the respiratory standpoint. Would monitor fever carefully, and in the event of any worsening clinical status to suggest onset of sepsis, would then empirically treat him with vancomycin and cefepime in combination. CLINT BENNETT M.D. [id number]
--- NOTE | 2017-09-18 16:28 | ECHO ---
Name: ZUNIGA, CASEY Exam:Adult Echocardiogram Study Date: 09/18/2017 02:21 PM Reason For Study: evaluate RV r/o pulmonary emboli Height: 67 in Weight: 225 lb BSA: 2.1 m2 MMode/2D Measurements & Calculations IVSd: 0.96 cm Ao root diam: 3.8 cm LVIDd: 4.0 cm LA dimension: 2.3 cm LVIDs: 2.5 cm ACS: 2.3 cm LVPWd: 0.91 cm IVSs: 0.90 cm LVPWs: 1.1 cm EDV(ich): 70.9 ml ESV([facility]): 22.2 ml Doppler Measurements & Calculations MV E max laureano: 40.7 cm/sec Ao V2 max: 101.8 cm/sec MV A max laureano: 74.8 cm/sec Ao max P.1 mmHg MV E/A: 0.54 Ao V2 mean: 72.8 cm/sec Ao mean P.4 mmHg Ao V2 VTI: 10.9 cm Med Peak E' Laureano: 8.7 cm/sec Med E/e': 4.7 Lat Peak E' Laureano: 5.7 cm/sec Lat E/e': 7.1 Procedure The study was technically difficult with many images being suboptimal in quality. The study was techn ically limited with all images being suboptimal in quality. Left Ventricle Left ventricular systolic function is grossly normal. Right Ventricle The right ventricle is not well visualized. Right ventricular function cannot be assessed due to poor image quality. Mitral Valve The mitral valve is grossly normal. There is no mitral valve stenosis. There is trace to mild mitral regurgitation. Tricuspid Valve The tricuspid valve is not well visualized. Aortic Valve The aortic valve opens well. No hemodynamically significant valvular aortic stenosis. Pulmonic Valve The pulmonic valve is not well visualized. Great Vessels Mild aortic root dilatation. Pericardium/Pleura There is no pericardial effusion. Interpretation Summary The study was technically difficult with many images being suboptimal in quality. The study was technically limited with all images being suboptimal in quality. Left ventricular systolic function is grossly normal. The right ventricle is not well visualized. Right ventricular function cannot be assessed due to poor image quality. There is trace to mild mitral regurgitation. MD Tra Rucker 09/18/2017 04:27 PM
[2017-09-18] MEDS ORDERED: morphine SULFATE 4 MG/ML VIAL IVPUSH PRN ×2 (16:51→16:52)
[2017-09-18] MEDS ORDERED: ACETAMINOPHEN 1000 MG/100 ML VIAL (NON FORMULARY) IVPB ONE (18:30)
[2017-09-19] MEDS: ACETAMINOPHEN 325 MG TABLET (FP) PO SCH ×2 (01:13→05:44)
[2017-09-19] MEDS: SODIUM CHLORIDE 1,000 ML IV SCH (04:00)
[2017-09-19 07:42] LABS: BASO % 0.1 % (0-2.0); EOS % 2.2 % (0-4.5); HEMOGLOBIN 11.4 GM/dL (11.7-16.9); LYMPH % 4.6 % (8-40); MCH 26.8 pg (25.7-33.7); MCHC 31.7 g/dl (32.0-35.9); MEAN CELL VOLUME 84.8 fl (80-96); MONO % 4.4 % (3.8-10.2); NEUT % 88.7 % (42.8-82.8); PLATELET COUNT 162 K/MM3 (134-434); RBC 4.25 M/mm3 (4.00-5.60); RDW 19.7 % (11.9-15.9); WHITE BLOOD COUNT 19.2 K/mm3 (4.0-10.0)
[2017-09-19 08:10] LABS: ALBUMIN 2.3 g/dl (3.4-5.0); ANION GAP 8 (8-16); BLOOD UREA NITROGEN 12 mg/dL (7-18); CHLORIDE 103 mmol/L (98-107); CO2 29 mmol/L (21-32); GLUCOSE,RANDOM 99 mg/dL (74-106); SODIUM 140 mmol/L (136-145)
[2017-09-19 08:16] LABS: ALK PHOS 59 U/L (45-117); BILIRUBIN,TOTAL 0.5 mg/dL (0.2-1.0); CALCIUM 7.4 mg/dL (8.5-10.1); CREATININE 1.2 mg/dL (0.7-1.3); SGOT/AST 13 U/L (15-37); SGPT/ALT 18 U/L (12-78); TOT PROT 5.2 g/dl (6.4-8.2)
--- NOTE | 2017-09-19 09:57 | PN ---
Physical Exam: SUBJECTIVE: Patient seen and examined. He has no complaints. OBJECTIVE: Vital Signs Period Temp Pulse Resp BP Sys/Ortiz Pulse Ox Last 24 Hr 99.1 F-103.0 F 125-137 18-18 106-122/63-76 97-98 GENERAL: The patient is awake, alert, and fully oriented, in no acute distress. LUNGS: Breath sounds equal, clear to auscultation bilaterally, no wheezes, no crackles, no accessory muscle use. HEART: Regular rhythm, tachycardic, S1, S2 without murmur, rub or gallop. ABDOMEN: Obese, soft, nontender, nondistended, normoactive bowel sounds, no guarding, no rebound, no hepatosplenomegaly, no masses. EXTREMITIES: 2+ pulses, warm, well-perfused, no edema. Right knee wrapped. Laboratory Results - last 24 hr 09/18/17 09/19/17 09/19/17 08:25 05:30 05:30 WBC 19.2 H RBC 4.25 Hgb 11.4 L Hct 36.0 MCV 84.8 MCH 26.8 MCHC 31.7 L RDW 19.7 H Plt Count 162 MPV 11.0 Absolute Neuts (auto) 17.0 Total Counted 100 Neutrophils % 88.7 H Neutrophils % (Manual) 84.0 H Band Neutrophils % 4.0 Lymphocytes % 4.6 L D Lymphocytes % (Manual) 6.0 L Monocytes % 4.4 Monocytes % (Manual) 2 L Eosinophils % 2.2 Eosinophils % (Manual) 2.0 Basophils % 0.1 Nucleated RBC % 0 Metamyelocytes 1 Platelet Estimate Adequate Sodium 140 Potassium 4.0 Chloride 103 Carbon Dioxide 29 Anion Gap 8 BUN 12 Creatinine 1.2 Creat Clearance w eGFR > 60 Random Glucose 99 Calcium 7.4 L Total Bilirubin 0.5 AST 13 L ALT 18 Alkaline Phosphatase 59 Total Protein 5.2 L Albumin 2.3 L Active Medications Generic Name Dose Route Start Last Admin Trade Name Freq PRN Reason Stop Dose Admin Acetaminophen 650 mg 09/16/17 12:30 09/19/17 05:44 Tylenol - PO 09/19/17 12:29 650 mg Q6H [facility] Administration Al Hydroxide/Mg Hydroxide 30 ml 09/16/17 12:20 Mylanta Oral Suspension - PO Q4H PRN DYSPEPSIA Aspirin 81 mg 09/16/17 22:00 09/18/17 21:02 Asa - PO 81 mg BID [facility] Administration Budesonide/Formoterol Fumarate 1 puff 09/17/17 10:00 09/18/17 11:25 Symbicort 160/4.5mcg - IH Not Given DAILY [facility] Diphenhydramine HCl 25 mg 09/18/17 16:50 09/19/17 05:43 Benadryl Injection - IVPUSH 25 mg Q6H PRN Administration itching Gabapentin 300 mg 09/16/17 22:00 09/18/17 21:02 Neurontin - PO 300 mg BID [facility] Administration Sodium Chloride 1,000 mls @ 100 mls/hr 09/18/17 04:00 09/19/17 04:00 Normal Saline - IV 100 mls/hr ASDIR [facility] Administration Magnesium Hydroxide 30 ml 09/16/17 12:20 Milk Of Magnesia - PO PRN PRN CONSTIPATION Morphine Sulfate 2 mg 09/18/17 16:51 Morphine Sulfate IVPUSH Q6H PRN PAIN LEVEL 6-10 Morphine Sulfate 1 mg 09/18/17 16:52 09/18/17 21:10 Morphine Sulfate IVPUSH 1 mg Q4H PRN Administration PAIN LEVEL 1-5 Non-Formulary Medication 4 gm 09/17/17 10:00 Ipratropium/Albuterol Sulfate [Combivent Respimat 20-100 Mcg] IH DAILY [facility] Ondansetron HCl 4 mg 09/16/17 12:20 09/18/17 07:45 Zofran Injection IVPUSH 4 mg Q6H PRN Administration NAUSEA Oxycodone HCl 5 mg 09/16/17 12:10 09/16/17 12:30 Roxicodone - PO 5 mg Q3H PRN Administration PAIN1-5; IF MORPHINE NT WORK Oxycodone HCl 10 mg 09/16/17 12:10 09/17/17 17:51 Roxicodone - PO 10 mg Q3H PRN Administration PAIN 6-10; IF MORPHINE NT WORK Oxycodone HCl 10 mg 09/16/17 22:00 09/18/17 21:02 Oxycontin - PO 09/19/17 12:10 Not Given BID [facility] Pantoprazole Sodium 40 mg 09/17/17 10:00 09/18/17 09:39 Protonix - PO 40 mg DAILY [facility] Administration Senna/Docusate Sodium 2 tablet 09/16/17 22:00 09/18/17 21:02 Pericolace - PO 2 tablet BID [facility] Administration ASSESSMENT/PLAN: This is a 32 year old man with a history of developmental delay, hypoparathyroidism, asthma, eczema, who underwent elective right knee supracondylar osteotomy on 09/16/17. 1. SIRS, post-op, with fever, leukocytosis, and tachycardia - Temp 102 overnight - Tachycardia persists - WBC increasing - Chest CTA shows no evidence of PE, pneumonia - Echo suboptimal and shows grossly normal LV function, trace to mild MR - Check venous dopplers of legs to evaluate for DVT - Will not start antibiotics as there is no obvious infection 2. Right knee valgus deformity, recurrent right lateral patellar instability - s/p right distal femoral medial closing wedge osteotomy with instrumentation 09/16 - Continue non-weight bearing on RLE - Continue aspirin for DVT prophylaxis - Ortho follow-up - Resume PT if no evidence of DVT 3. Asthma - Stable - Continue Symbicort 4. Hypoparathyroidism 5. Developmental delay Visit type - Emergency Visit Emergency Visit: No - New Patient This patient is new to me today: Yes Date on this admission: 09/19/17 - Critical Care Critical Care patient: No - Discharge Referral Referred to [facility] No
[2017-09-19] MEDS: GABAPENTIN 300 MG CAPSULE (FP) PO SCH ×2 (10:11→21:45)
[2017-09-19] MEDS: ASPIRIN 81 MG CHEWABLE TABLETS PO SCH ×2 (10:12→21:45)
[2017-09-19] MEDS: PANTOPRAZOLE 40 MG TABLET (FP) PO SCH (10:12)
[2017-09-19] MEDS: oxyCODONE HCL 10 MG SUSTAINED ACTING TABLET PO SCH (10:12)
[2017-09-19] MEDS: SENNOSIDES/DOCUSATE COMBO (SENNA PLUS) TABLET (UD) PO SCH ×2 (10:12→21:45)
[2017-09-19] MEDS: BUDESONIDE/FORMETEROL FUMARATE 160/4.5 mcg INHALER IH SCH (10:14)
--- NOTE | 2017-09-19 10:40 | PN ---
Progress Note (short form) - Note Progress Note: feels well has been itching since he took oxycodone at [facility] now with diffuse rash-maculopapular fevers a bit improved alert, NAD Vital Signs Period Temp Pulse Resp BP Sys/Ortiz Pulse Ox Last 24 Hr 99.1 F-103.0 F 125-137 - 107-122/63-76 98 cor-rrr lungs clear abd soft,nt ext dressing right knee skin- diffuse maculopapular rash throughout entire body no oral lesions skin is warm and reddened CBC, BMP 09/19/17 05:30 09/19/17 05:30 LFTs normal Microbiology 09/17/17 08:01 Blood - Peripheral Venous Blood Culture - Preliminary NO GROWTH OBTAINED AFTER 48 HOURS, INCUBATION TO CONTINUE FOR 3 DAYS. 09/17/17 08:01 Blood - Peripheral Venous Blood Culture - Preliminary NO GROWTH OBTAINED AFTER 48 HOURS, INCUBATION TO CONTINUE FOR 3 DAYS. a/p drug rash with fever- he looks well d/w hospitalist on benadryl, would add steroids s/p knee surgery 09/16 oxycodone allergy
[2017-09-19] MEDS ORDERED: methylPREDNISolone NA SUCC 125 MG/2 ML VIAL IVPUSH ONE (10:45)
--- NOTE | 2017-09-19 11:32 | PN ---
Progress Note, Physician Chief Complaint: Pt A&Ox3; no chest pain or dyspnea. History of Present Illness: Patient is a 32 y/o obese male with a past medical history of developmental delay, PNA (intubated whilehospitalizated at [facility] for 1 month) asthma, eczema, and hypoparathyroidism. Patient has a past surgical history of bilateral patella re-allignment. Patient is scheduled for an elective right knee supracondylar osteotomy scheduled wiht Dr Vogel 09/16/17. History Source: Patient Limitations to Obtaining History: No Limitations - Smoking History Smoking history: Never smoked - Alcohol/Substance Use Hx Alcohol Use: Yes (occasional) - Current Medication List Current Medications: Active Medications Acetaminophen (Tylenol -) 650 mg PO Q6H [facility] Stop: 09/19/17 12:29 Last Admin: 09/19/17 05:44 Dose: 650 mg Al Hydroxide/Mg Hydroxide (Mylanta Oral Suspension -) 30 ml PO Q4H PRN PRN Reason: DYSPEPSIA Aspirin (Asa -) 81 mg PO BID [facility] Last Admin: 09/19/17 10:12 Dose: 81 mg Budesonide/Formoterol Fumarate (Symbicort 160/4.5mcg -) 1 puff IH DAILY [facility] Last Admin: 09/19/17 10:14 Dose: 1 puff Diphenhydramine HCl (Benadryl Injection -) 25 mg IVPUSH Q6H PRN PRN Reason: itching Last Admin: 09/19/17 05:43 Dose: 25 mg Gabapentin (Neurontin -) 300 mg PO BID [facility] Last Admin: 09/19/17 10:11 Dose: 300 mg Sodium Chloride (Normal Saline -) 1,000 mls @ 100 mls/hr IV ASDIR EUNICE Last Admin: 09/19/17 04:00 Dose: 100 mls/hr Magnesium Hydroxide (Milk Of Magnesia -) 30 ml PO PRN PRN PRN Reason: CONSTIPATION Non-Formulary Medication (Ipratropium/Albuterol Sulfate [Combivent Respimat 20- 100 Mcg]) 4 gm IH DAILY [facility] Ondansetron HCl (Zofran Injection) 4 mg IVPUSH Q6H PRN PRN Reason: NAUSEA Last Admin: 09/18/17 07:45 Dose: 4 mg Pantoprazole Sodium (Protonix -) 40 mg PO DAILY [facility] Last Admin: 09/19/17 10:12 Dose: 40 mg Prednisone (Deltasone -) 60 mg PO DAILY [facility] Senna/Docusate Sodium (Pericolace -) 2 tablet PO BID [facility] Last Admin: 09/19/17 10:12 Dose: 2 tablet - Objective Vital Signs: Vital Signs Temperature 98.4 F 09/19/17 10:00 Pulse Rate 120 H 09/19/17 10:00 Respiratory Rate 18 09/19/17 10:00 Blood Pressure 148/72 09/19/17 10:00 O2 Sat by Pulse Oximetry (%) 98 09/18/17 21:00 Constitutional: Yes: Calm Eyes: Yes: WNL HENT: Yes: WNL Neck: Yes: WNL Cardiovascular: Yes: Regular Rate and Rhythm, S1, S2, S4 Respiratory: Yes: Regular Gastrointestinal: Yes: Soft, Abdomen, Obese ...Rectal Exam: Yes: Deferred Genitourinary: No: Anuria Labs: CBC, BMP 09/19/17 05:30 09/19/17 05:30
[2017-09-20 06:54] LABS: BASO % 0.1 % (0-2.0); EOS % 0.1 % (0-4.5); HEMATOCRIT 26.5 % (35.4-49); HEMOGLOBIN 8.7 GM/dL (11.7-16.9); LYMPH % 5.9 % (8-40); MCH 27.2 pg (25.7-33.7); MCHC 32.8 g/dl (32.0-35.9); MONO % 4.9 % (3.8-10.2); PLATELET COUNT 144 K/MM3 (134-434); WHITE BLOOD COUNT 14.4 K/mm3 (4.0-10.0)
[2017-09-20 07:26] LABS: ALBUMIN 2.3 g/dl (3.4-5.0); ANION GAP 8 (8-16); BLOOD UREA NITROGEN 12 mg/dL (7-18); CALCIUM 7.5 mg/dL (8.5-10.1); CHLORIDE 106 mmol/L (98-107); CO2 29 mmol/L (21-32); GLUCOSE,RANDOM 160 mg/dL (74-106); POTASSIUM 3.7 mmol/L (3.5-5.1); SODIUM 143 mmol/L (136-145)
[2017-09-20 07:32] LABS: ALK PHOS 57 U/L (45-117); BILIRUBIN,TOTAL 0.2 mg/dL (0.2-1.0); CREATININE 0.8 mg/dL (0.7-1.3); SGOT/AST 10 U/L (15-37); SGPT/ALT 17 U/L (12-78); TOT PROT 5.3 g/dl (6.4-8.2)
--- NOTE | 2017-09-20 09:27 | PN ---
Progress Note (short form) - Note Progress Note: feels well has been itching since he took oxycodone at [facility] rash a bit less red still itchy fevers trending down steroids started yesterday +bm, eating well Vital Signs Period Temp Pulse Resp BP Sys/Ortiz Pulse Ox Last 24 Hr 98.4 F-100.7 F 100-120 18-20 104-148/57-76 98 no oral lesions skin still with diffuse macular rash back, arms, chest cor-rrr lungs clear abd soft,nt ext dressing right knee CBC, BMP 09/20/17 05:30 09/20/17 05:30 LFTs normal Microbiology 09/17/17 08:01 Blood - Peripheral Venous Blood Culture - Preliminary NO GROWTH OBTAINED AFTER 72 HOURS, INCUBATION TO CONTINUE FOR 2 DAYS. 09/17/17 08:01 Blood - Peripheral Venous Blood Culture - Preliminary NO GROWTH OBTAINED AFTER 72 HOURS, INCUBATION TO CONTINUE FOR 2 DAYS. a/p drug rash with fever- he looks well improving continue steroids with rapid taper s/p knee surgery 09/16 oxycodone allergy d/w hospitalist
[2017-09-20] MEDS: SENNOSIDES/DOCUSATE COMBO (SENNA PLUS) TABLET (UD) PO SCH (09:34)
[2017-09-20] MEDS: GABAPENTIN 300 MG CAPSULE (FP) PO SCH (09:34)
[2017-09-20] MEDS: PANTOPRAZOLE 40 MG TABLET (FP) PO SCH (09:34)
[2017-09-20] MEDS: BUDESONIDE/FORMETEROL FUMARATE 160/4.5 mcg INHALER IH SCH (09:34)
[2017-09-20] MEDS: ASPIRIN 81 MG CHEWABLE TABLETS PO SCH (09:34)
[2017-09-20] MEDS ORDERED: predniSONE 20 MG TABLET (UD) PO SCH (10:00)
--- NOTE | 2017-09-20 10:13 | PN ---
Physical Exam: SUBJECTIVE: Patient seen and examined. He is comfortable sitting in wheelchair. He says itching is better. OBJECTIVE: Vital Signs Period Temp Pulse Resp BP Sys/Ortiz Pulse Ox Last 24 Hr 98.5 F-100.7 F 100-120 18-20 104-129/57-76 98 GENERAL: The patient is awake, alert, and fully oriented, in no acute distress. LUNGS: Breath sounds equal, clear to auscultation bilaterally, no wheezes, no crackles, no accessory muscle use. HEART: Regular rhythm, tachycardic, S1, S2 without murmur, rub or gallop. ABDOMEN: Obese, soft, nontender, nondistended, normoactive bowel sounds, no guarding, no rebound, no hepatosplenomegaly, no masses. EXTREMITIES: 2+ pulses, warm, well-perfused, no edema. SKIN: Warm, dry, normal turgor, diffuse rash is less erythematous. Laboratory Results - last 24 hr 09/20/17 09/20/17 05:30 05:30 WBC 14.4 H RBC 3.20 L Hgb 8.7 L Hct 26.5 L D MCV 83.0 MCH 27.2 MCHC 32.8 RDW 19.0 H Plt Count 144 MPV 11.0 Absolute Neuts (auto) 12.8 Neutrophils % 89.0 H Lymphocytes % 5.9 L D Monocytes % 4.9 Eosinophils % 0.1 D Basophils % 0.1 Nucleated RBC % 0 Sodium 143 Potassium 3.7 Chloride 106 Carbon Dioxide 29 Anion Gap 8 BUN 12 Creatinine 0.8 Creat Clearance w eGFR > 60 Random Glucose 160 H D Calcium 7.5 L Total Bilirubin 0.2 AST 10 L D ALT 17 Alkaline Phosphatase 57 Total Protein 5.3 L Albumin 2.3 L Active Medications Generic Name Dose Route Start Last Admin Trade Name Freq PRN Reason Stop Dose Admin Al Hydroxide/Mg Hydroxide 30 ml 09/16/17 12:20 Mylanta Oral Suspension - PO Q4H PRN DYSPEPSIA Aspirin 81 mg 09/16/17 22:00 09/20/17 09:34 Asa - PO 81 mg BID EUNICE Administration Budesonide/Formoterol Fumarate 1 puff 09/17/17 10:00 09/20/17 09:34 Symbicort 160/4.5mcg - IH 1 puff DAILY E[facility] Administration Diphenhydramine HCl 25 mg 07/13/18 16:50 09/19/17 18:40 Benadryl Injection - IVPUSH 25 mg Q6H PRN Administration itching Gabapentin 300 mg 09/16/17 22:00 09/20/17 09:34 Neurontin - PO 300 mg BID E[facility]ICE Administration Sodium Chloride 1,000 mls @ 100 mls/hr 09/18/17 04:00 09/19/17 04:00 Normal Saline - IV 100 mls/hr ASDIR EUNICE Administration Magnesium Hydroxide 30 ml 09/16/17 12:20 Milk Of Magnesia - PO PRN PRN CONSTIPATION Non-Formulary Medication 4 gm 09/17/17 10:00 Ipratropium/Albuterol Sulfate [Combivent Respimat 20-100 Mcg] IH DAILY [facility] Ondansetron HCl 4 mg 09/16/17 12:20 09/18/17 07:45 Zofran Injection IVPUSH 4 mg Q6H PRN Administration NAUSEA Pantoprazole Sodium 40 mg 09/17/17 10:00 09/20/17 09:34 Protonix - PO 40 mg DAILY [facility] Administration Prednisone 60 mg 09/20/17 10:00 09/20/17 09:34 Deltasone - PO 60 mg DAILY [facility] Administration Senna/Docusate Sodium 2 tablet 09/16/17 22:00 09/20/17 09:34 Pericolace - PO 2 tablet BID E[facility] Administration ASSESSMENT/PLAN: This is a 32 year old man with a history of developmental delay, hypoparathyroidism, asthma, eczema, who underwent elective right knee surgery on 09/16/17. 1. SIRS, with fever, leukocytosis, and tachycardia, secondary to drug rash from oxycodone - Tmax 100.7, tachycardia and WBC improving - Chest CTA shows no evidence of PE, pneumonia - Venous dopplers of both legs show know evidence of DVT - Echo suboptimal and shows grossly normal LV function, trace to mild MR - Given SoluMedrol yesterday, Prednisone started today - Continue Benadryl as needed 2. Anemia, acute - Possibly dilutional secondary to IV fluid - Decrease IV fluid - No evidence of bleeding - Doubt hemolysis as total bili is 0.2 - Monitor hemoglobin 3. Right knee valgus deformity, recurrent right lateral patellar instability - s/p right distal femoral medial closing wedge osteotomy with instrumentation 09/16 - Continue non-weight bearing on RLE - Continue aspirin for DVT prophylaxis - Ortho follow-up - Physical therapy 4. Asthma - Stable - Continue Symbicort 5. Hypoparathyroidism 6. Developmental delay 6. Obesity with BMI 35.2 Visit type - Emergency Visit Emergency Visit: No - New Patient This patient is new to me today: No - Critical Care Critical Care patient: No - Discharge Referral Referred to [facility] Med P.C.: No
[2017-09-20] MEDS ORDERED: SODIUM CHLORIDE 1,000 ML IV SCH (10:25)
[2017-09-20 12:20] LABS: HEMATOCRIT 30.3 % (35.4-49); HEMOGLOBIN 9.6 GM/dL (11.7-16.9); MCH 26.8 pg (25.7-33.7); MCHC 31.7 g/dl (32.0-35.9); MEAN CELL VOLUME 84.6 fl (80-96); MEAN PLT VOLUME 10.2 fl (7.5-11.1); PLATELET COUNT 170 K/MM3 (134-434); RBC 3.58 M/mm3 (4.00-5.60); RDW 19.6 % (11.9-15.9); WHITE BLOOD COUNT 18.4 K/mm3 (4.0-10.0)
[2017-09-20 14:15] VITALS: TEMP 98.8
--- NOTE | 2017-09-20 14:46 | DS ---
Physical Exam: SUBJECTIVE: Patient seen and examined OBJECTIVE: Vital Signs Period Temp Pulse Resp BP Sys/Ortiz Pulse Ox Last 24 Hr 98.5 F-100.7 F 97-120 18-20 104-140/57-91 97-98 PHYSICAL EXAM GENERAL: The patient is awake, alert, and fully oriented, in no acute distress. HEAD: Normal with no signs of trauma. EYES: PERRL, extraocular movements intact, sclera anicteric, conjunctiva clear. ENT: Ears normal, nares patent, oropharynx clear without exudates, moist mucous membranes. NECK: Trachea midline, full range of motion, supple. LUNGS: Breath sounds equal, clear to auscultation bilaterally, no wheezes, no crackles, no accessory muscle use. HEART: Regular rate and rhythm, S1, S2 without murmur, rub or gallop. ABDOMEN: Soft, nontender, nondistended, normoactive bowel sounds, no guarding, no rebound, no hepatosplenomegaly, no masses. EXTREMITIES: 2+ pulses, warm, well-perfused, no edema. NEUROLOGICAL: Cranial nerves II through XII grossly intact. Normal speech, gait not observed. PSYCH: Normal mood, normal affect. SKIN: Warm, dry, normal turgor, no rashes or lesions noted. LABS Laboratory Results - last 24 hr 09/20/17 09/20/17 09/20/17 05:30 05:30 12:13 WBC 14.4 H 18.4 H RBC 3.20 L 3.58 L Hgb 8.7 L 9.6 L Hct 26.5 L D 30.3 L MCV 83.0 84.6 MCH 27.2 26.8 MCHC 32.8 31.7 L RDW 19.0 H 19.6 H Plt Count 144 170 MPV 11.0 10.2 Absolute Neuts (auto) 12.8 Neutrophils % 89.0 H Lymphocytes % 5.9 L D Monocytes % 4.9 Eosinophils % 0.1 D Basophils % 0.1 Nucleated RBC % 0 Sodium 143 Potassium 3.7 Chloride 106 Carbon Dioxide 29 Anion Gap 8 BUN 12 Creatinine 0.8 Creat Clearance w eGFR > 60 Random Glucose 160 H D Calcium 7.5 L Total Bilirubin 0.2 AST 10 L D ALT 17 Alkaline Phosphatase 57 Total Protein 5.3 L Albumin 2.3 L HOSPITAL COURSE: Date of Admission:09/16/17 Date of Discharge: 09/20/17 Minutes to complete discharge: 45 Discharge Summary Reason For Visit: UNILATERAL OA RIGHT KNEE Current Active Problems Anemia (Acute) Drug reaction (Acute) History of knee surgery (Acute) Postoperative fever (Acute) SIRS (systemic inflammatory response syndrome) (Acute) Asthma (Chronic) Hyperlipidemia (Chronic) Hypoparathyroidism (Chronic) Obesity (BMI 30-39.9) (Chronic) Condition: Stable - Instructions Diet, Activity, Other Instructions: Dr. Vogel Discharge Instructions Post Operative Instructions Physical activity Physical Therapist will come to your home for the first 5 days. You will be set up with outpatient PT at your first post-operative visit. Use assistive devices for ambulation at all times. Non-weight bearing on your surgical side. Wear brace as directed. Do not put pillow under knee. May put pillow under heel. Wound care Leave your surgical dressing in place. Do not change the dressing until seen by your surgeon in the office. No baths or showers. Do not submerge your incision. Do not apply any ointments or lotions to your incision. Please call the office if your dressing is soiled/dirty or is falling off. Apply Graduated Compression Stockings (TEDS) to both lower extremities - remove daily for hygiene ONLY. Diet There are no dietary restrictions. Eat healthy, high-fiber foods. Drink 6 to 8 glasses of liquid each day. This will assist in keeping your bowels are regular. Pain management Any pain prescription medication ordered should be taken as prescribed for moderate to severe pain. Do not take additional Tylenol while taking Percocet. Take Aspirin 81 mg two times a day for a total of 6 weeks to prevent blood clots. Call Dr. Vogel for any of the following: Severe pain not relieved by medication Fever of 101 or higher Excessive bleeding or drainage on dressing Inability to urinate If you experience chest pain or shortness of breath, please seek emergency care immediately. Please call the office at to confirm your post-op appointment for the week following surgery. Disposition: HOME - Home Medications Comprehensive Discharge Medication List: Ambulatory Orders Atorvastatin Ca [Lipitor] 10 mg PO HS 09/08/17 Budesonide/Formeterol Fumarate [SYMBICORT 160/4.5mcg -] 1 inh PO DAILY 09/08/17 Calcitriol [Calcitriol -] 0.75 mcg PO DAILY 09/08/17 Calcium Carbonate 1,250 mg PO DAILY 09/08/17 Ipratropium/Albuterol Sulfate [Combivent Respimat 20-100 Mcg] 4 gm IH DAILY 05/24 Acetaminophen [Tylenol .Regular Strength -] 650 mg PO Q6H tablet 09/20/17 Aspirin [ASA -] 81 mg PO BID tab.chew 09/20/17 Gabapentin [Neurontin -] 300 mg PO BID #60 capsule 09/20/17 Wheelchair, Standard 1 ea NR ASDIR #1 ea 09/20/17 predniSONE [Deltasone -] 3 tab PO DAILY 4 Days #12 tablet 09/20/17 - Discharge Referral Referred to [facility] No
[2017-09-20 15:38] VITALS: BP 114/97; PULSE 98
--- NOTE | 2017-09-20 15:43 | PN ---
Progress Note, Physician - Current Medication List Current Medications: Active Medications Al Hydroxide/Mg Hydroxide (Mylanta Oral Suspension -) 30 ml PO Q4H PRN PRN Reason: DYSPEPSIA Aspirin (Asa -) 81 mg PO BID [facility] Last Admin: 09/20/17 09:34 Dose: 81 mg Budesonide/Formoterol Fumarate (Symbicort 160/4.5mcg -) 1 puff IH DAILY [facility] Last Admin: 09/20/17 09:34 Dose: 1 puff Diphenhydramine HCl (Benadryl Injection -) 25 mg IVPUSH Q6H PRN PRN Reason: itching Last Admin: 09/19/17 18:40 Dose: 25 mg Gabapentin (Neurontin -) 300 mg PO BID [facility] Last Admin: 09/20/17 09:34 Dose: 300 mg Sodium Chloride (Normal Saline -) 1,000 mls @ 60 mls/hr IV [facility] Last Admin: 09/20/17 10:30 Dose: 60 mls/hr Magnesium Hydroxide (Milk Of Magnesia -) 30 ml PO PRN PRN PRN Reason: CONSTIPATION Non-Formulary Medication (Ipratropium/Albuterol Sulfate [Combivent Respimat 20- 100 Mcg]) 4 gm IH DA[facility] Ondansetron HCl (Zofran Injection) 4 mg IVPUSH Q6H PRN PRN Reason: NAUSEA Last Admin: 09/18/17 07:45 Dose: 4 mg Pantoprazole Sodium (Protonix -) 40 mg PO DAILY [facility] Last Admin: 09/20/17 09:34 Dose: 40 mg Prednisone (Deltasone -) 60 mg PO DAILY [facility] Last Admin: 09/20/17 09:34 Dose: 60 mg Senna/Docusate Sodium (Pericolace -) 2 tablet PO BID [facility] Last Admin: 09/20/17 09:34 Dose: 2 tablet - Objective Vital Signs: Vital Signs Temperature 98.8 F 09/20/17 14:14 Pulse Rate 98 H 09/20/17 15:37 Respiratory Rate 20 09/20/17 15:37 Blood Pressure 114/97 09/20/17 15:37 O2 Sat by Pulse Oximetry (%) 97 09/20/17 10:00 Labs: CBC, BMP 09/20/17 12:13 09/20/17 05:30
--- NOTE | 2017-09-21 20:13 | EKG ---
Test Reason : Blood Pressure : / mmHG Vent. Rate : 127 BPM Atrial Rate : 127 BPM P-R Int : 138 ms QRS Dur : 086 ms QT Int : 298 ms P-R-T Axes : 049 009 033 degrees QTc Int : 433 ms SINUS TACHYCARDIA NONSPECIFIC T WAVE ABNORMALITY ABNORMAL ECG NO PREVIOUS ECGS AVAILABLE Confirmed by MD ALEXEI, LILIBETH ([id number]) on 09/21/2017 8:13:18 PM Referred By: Wesley Vogel Confirmed By:LILIBETH LINDA MD
== END 2017-09-20 16:32 | disposition home or self-care (01) | DRG 481 ==
LOC: FM/S 05:56 → EDBD 08:00 → FM/S 13:57 → J4W 09-18 07:17
PROVIDERS: ADMIT Orthopaedic Surgery Orthopaedic Surgery of the Spine; ATTEND Internal Medicine
PROC: 0QSB04Z Reposition Right Lower Femur with Internal Fixation Device, Open Approach (ICD-10-PCS; principal; 2017-09-16 08:00)
DX: M21.061 Valgus deformity, not elsewhere classified, right knee (principal); E87.2 Acidosis; R65.10 Systemic inflammatory response syndrome (SIRS) of non-infectious origin without acute organ dysfunction; E66.9 Obesity, unspecified; R62.50 Unspecified lack of expected normal physiological development in childhood; J45.909 Unspecified asthma, uncomplicated; R00.0 Tachycardia, unspecified; D72.829 Elevated white blood cell count, unspecified; L27.0 Generalized skin eruption due to drugs and medicaments taken internally; T40.2X5A Adverse effect of other opioids, initial encounter; E78.5 Hyperlipidemia, unspecified; Z68.35 Body mass index [BMI] 35.0-35.9, adult; E20.9 Hypoparathyroidism, unspecified; D64.9 Anemia, unspecified; R50.82 Postprocedural fever
CPT/HCPCS: 36415; 71045-TC-FY; 71275-TC; 73590-TC-RT-FY; 76001-TC-FY; 80048; 80053; 81003; 83605; 85025; 85027; 87040; 93005; 93010; 93306-TC; 93970-TC; 97116-GP; 97161-GP; J0131; J7030

== ENCOUNTER 2018-11-12 09:38 | Inpatient (IN) | payer OTHER ==
[2018-11-03 12:01] VITALS: BMI 37.3
[2018-11-12] MEDS ORDERED: PROPOFOL 20 ML ONE ×3 (09:44→11:45)
[2018-11-12] MEDS ORDERED: MIDAZOLAM HCL 2 MG/2 ML SINGLE DOSE VIAL ONE (09:44)
[2018-11-12] MEDS ORDERED: methylPREDNISolone NA SUCC 40 MG/1 ML VIAL ONE (10:35)
[2018-11-12] MEDS ORDERED: VANCOMYCIN 1,000 MG VIAL (RESTRICTED TO ID ONLY) ONE (11:08)
[2018-11-12] MEDS ORDERED: TRANEXAMIC ACID 1000 MG/10 ML VIAL ONE (12:01)
[2018-11-12] MEDS ORDERED: BUPIVACAINE HCL/PF 0.5% (5 MG/ML) 30 ML VIAL IJ ONE (14:56)
--- NOTE | 2018-11-12 15:03 | PN ---
Progress Note (short form) - Note Progress Note: 33M s/p LEFT distal femoral medial closing wedge osteotomy with instrumentation & RIGHT knee exostectomy POD #0. -Pain control: per anesthesia team. -DVT PPx: - Chemical: ASA 81mg PO BID x 6 weeks - Mechanical: NEIL's, SCD's. -Incentive spirometry. -PT/OT/Rehab, OOB. -TTWB LLE. -Gentle ROM LEFT knee OK. -f/u LEFT knee drain output. -f/u post-op trial of void (8 hours max). -f/u AM labs. -Will order Buchanan brace for patient. -Care per medical hospitalist team. -Discharge planning: f/u 11/18/2017 at [facility] [place] office; call for appointment; . -Will follow. Wesley Vogel MD (Orthopaedic Surgery).
[2018-11-12] MEDS ORDERED: oxyCODONE HCL 5 MG TABLET PO PRN (15:05)
[2018-11-12] MEDS ORDERED: PROMETHAZINE HCL 25 MG/1 ML VIAL IVPUSH PRN (15:05)
--- NOTE | 2018-11-12 15:05 | OP ---
Operative Note - Note: Operative Date: 11/12/18 Pre-Operative Diagnosis: 1. Left knee valgus deformity. 2. Right knee exostosis Operation: 1. Left distal femur supracondylar medial closing wedge osteotomy and fixation with bone graft. 2. Right knee exostectomy Implants: Synthes 90 degree offset blade plate: 65mm length, 15mm offset Post-Operative Diagnosis: Same as Pre-op Surgeon: Wesley Vogel Solution Designer: Al Vogel Anesthesiologist/FLOWER MACHINE OPERATOR: Diony Franco Anesthesia: Spinal Estimated Blood Loss (mls): 0 Drains & Tubes with Location: 1 x deep HemoVac left knee Fluid Volume Replaced (mls): 600 (Crystalloid) Operative Report Dictated: Yes
[2018-11-12] MEDS ORDERED: ONDANSETRON 4 MG/2 ML VIAL IVPUSH PRN (15:08)
[2018-11-12] MEDS ORDERED: MAG HYDROX/AL HYDROX/SIMETH 30 ML UNIT-DOSE CUP PO PRN (15:08)
[2018-11-12] MEDS ORDERED: MAGNESIUM HYDROX 2400MG/30ML ORAL SUSPENSION 30 ML CUP PO PRN (15:08)
[2018-11-12] MEDS ORDERED: LACTATED RINGERS SOLUTION 1,000 ML IV SCH (15:15)
[2018-11-12] MEDS: oxyCODONE HCL 5 MG TABLET PO PRN ×2 (16:08→22:00)
--- NOTE | 2018-11-12 16:16 | OP ---
DATE OF OPERATION: DATE OF DICTATION: 11/12/2018 SURGEON: Wesley Vogel MD CONSULTING SALES EXECUTIVE: Al Vogel MD PREOPERATIVE DIAGNOSES: 1. Valgus deformity, left knee, with recurrent dislocating patella (post previous Bishop osteotomy). 2. Ossification of the iliotibial band. POSTOPERATIVE DIAGNOSES: 1. Valgus deformity, left knee, with recurrent dislocating patella (post previous Bishop osteotomy). 2. Osteochondral fragment, right knee (lateral femoral condyle). OPERATIONS PERFORMED: 1. Left supracondylar osteotomy with 90-degree Synthes blade plate. 2. Arthrotomy right knee with resection of lateral femoral condylar osteochondral lesion. ANESTHESIA: Spinal with conscious sedation. ANTIBIOTICS GIVEN: 1 g vancomycin preoperative. ALLERGIES: PENICILLIN. OPERATION DETAILS: 1. Left lower extremity prepped and draped in the routine manner with Betadine scrub solution, wiped with alcohol, DuraPrep applied, a free drape applied. A time- out was called. Utilizing biplane fluoroscopy, the distal femur and knee joint were identified. A medial incision anterior to the saphenous vein and nerve was performed longitudinally to expose the medial femoral condyle. The skin was opened as was the subcutaneous tissue. The vastus medialis was identified. The vastus medialis was subperiosteally dissected off the intramuscular septum and its very distal attachments to the linea aspera exposing the medial femur and anterior aspect of the distal femur appropriately. A K-wire was inserted under fluoroscopic guidance to be parallel to the femoral condylar surface, which revealed the presence of a deficient lateral femoral condyle, hence, the valgus deformity. Parallel to this pin, the seating chisel of a 90-degree blade plate was inserted. The first 3 drill holes were made in the lateral femoral cortical surface. The drill holes were up to each other by breaking through the intercalary bone between the drill holes. A seating chisel was then sunk into the bone bed to bring about excellent parallelity to the first K-wire. The 95-degree 15-mm offset blade plate was then partially inserted into the channel already cut for the blade of the actual blade plate. At the level of the femoral shaft, a 90-degree pin was placed, that is K-wire, 90 degrees to the surface of the femur. The saw cut that was made, 1 was parallel to the seating chisel of the blade plate and the 2nd osteotomy cut from the medial surface that was a medial-based wedge parallel to the 90-degree pin placed in the femoral shaft. The medial cortex was left intact. The wedge of bone removed, and following this, the actual femur was broken by closing the wedge appropriately to straighten the limb from valgus to a straight limb position. The blade plate was then finally seated all the way into its correct position using the nipple punch. The plate of the blade plate was now seated closely to the bone and very accurate apposition achieved. Under x-ray control, the bony ends were approximated beautifully. The correction was well noted. All rotational malalignments as well as ensuring that the distal femur did not fall into recurvatum or antecurvatum was paid attention time, and 4 screws were seated into the plate using dynamic compression. These were 4/5 Synthes screws. The proximal screw was a shorter screw to equalize the elasticity profile. Solid fixation achieved. An additional screw was placed into the distal bone bed through the nipple hole. This was a small fragment screw to aid in preventing rotational problems. The bone that was harvested was placed through the bone graft on the medial side of the femoral condyle. The wounds were thoroughly lavages. A 1/8-inch drain was utilized. This was placed and brought out medially. Closure was as follows: Fascia 1 Vicryl. The vastus medialis just fell simply back into its old position. Subcutaneous 1 Vicryl, skin 3-0 Monocryl with Steri-Strips. Drainage 1/8-inch Hemovac as outlined above. X-ray showed no complication of the seating of the implant and the positioning of the osteotomy. Flexion and extension revealed significantly more stable patella situation. The dressings were applied. All drapes were removed, and the 2nd operation commenced as follows. Operation No. 2: Right lower extremity prepped and draped in a routine manner with Betadine scrub solution, wiped off with alcohol, DuraPrep applied. A separate time-out was called for this component. Via lateral incision over the palpable area of this mobile fragment of bone, which was thought to be in the confines of the iliotibial band, the skin was opened. The iliotibial band was opened, and it was noted that the lesion was still deep, hence, namely intra-articular. A small arthrotomy was performed on the lateral side of the knee. Once this had been opened, the actual osteochondral fragment was noted. It was mobile but not completely free. It was adherent to the lateral femoral condylar surface. The block of bone was gently manipulated into view and removed without any difficulty. This was sent to the lab for appropriate histopathology. This appeared to be an adherent osteochondral fragment of bone. The wounds were thoroughly lavages. The arthrotomy was closed with capsule and retinaculum all in 1 layer with No. 1, subcutaneous 1-0 and 2-0 Vicryl, skin 3-0 Monocryl with Steri-Strips. Drainage nil. Operation went well. No complications. MD DON [id number] MTDD
[2018-11-12] MEDS: ONDANSETRON 4 MG/2 ML VIAL IVPUSH PRN (19:42)
[2018-11-12] MEDS ORDERED: VANCOMYCIN 1 GRAM (PRE-DOCKED) 1,000 MG/250 ML BAG IVPB ONE (20:00)
[2018-11-12] MEDS ORDERED: VANCOMYCIN 1,000 MG in DEXTROSE 5%-WATER - 250 ML IVPB ONE (20:00)
[2018-11-12] MEDS: ATORVASTATIN CA 10 MG TABLET (FP) PO SCH (21:56)
[2018-11-12] MEDS: SENNOSIDES/DOCUSATE COMBO (SENNA PLUS) TABLET (UD) PO SCH (21:56)
[2018-11-12] MEDS: ASPIRIN 81 MG CHEWABLE TABLETS PO SCH (21:56)
[2018-11-13] MEDS: BUDESONIDE/FORMETEROL FUMARATE 160/4.5 mcg INHALER IH SCH ×3 (00:30→21:20)
[2018-11-13 08:38] LABS: HEMATOCRIT 34.8 % (35.4-49); HEMOGLOBIN 11.1 GM/dl (11.7-16.9); MCH 25.5 pg (25.7-33.7); MEAN CELL VOLUME 79.9 fl (80-96); MEAN PLT VOLUME 10.3 fl (7.5-11.1); PLATELET COUNT 134 K/MM3 (134-434); RBC 4.36 M/mm3 (4.00-5.60); RDW 18.7 % (11.9-15.9); WHITE BLOOD COUNT 17.3 K/mm3 (4.0-10.8)
[2018-11-13 08:57] LABS: CREATININE 2.3 mg/dl (0.55-1.3); POTASSIUM 3.7 mmol/L (3.5-5.1)
[2018-11-13 09:04] LABS: CALCIUM 6.8 mg/dl (8.5-10)
[2018-11-13] MEDS ORDERED: PATIENT'S OWN MEDICATION (NON-FORMULARY) (Ipratropium/Albuterol Sulfate [Combivent Respima IH SCH (10:00)
[2018-11-13] MEDS ORDERED: PT OWN MED DRAWER 7, Y5N ONE (10:13)
[2018-11-13] MEDS: PANTOPRAZOLE 40 MG TABLET (FP) PO SCH (10:43)
[2018-11-13] MEDS: ASPIRIN 81 MG CHEWABLE TABLETS PO SCH ×2 (10:44→21:21)
[2018-11-13] MEDS: SENNOSIDES/DOCUSATE COMBO (SENNA PLUS) TABLET (UD) PO SCH ×2 (10:45→21:21)
[2018-11-13] MEDS: oxyCODONE HCL 5 MG TABLET PO PRN (10:48)
[2018-11-13] MEDS: CALCITRIOL 0.25 MCG CAPSULE (FP) PO SCH (10:51)
[2018-11-13] MEDS: CALCIUM CARBONATE 650 MG TABLET PO SCH (10:51)
--- NOTE | 2018-11-13 11:16 | CONSULT ---
Consult Consult Specialty:: IM Reason for Consultation:: post-op medical management - History Source History Provided By: Patient, Family Member Limitations to Obtaining History: No Limitations - Past Medical History Pulmonary: Yes: Asthma - Alcohol/Substance Use Hx Alcohol Use: No History of Substance Use: reports: None - Smoking History Smoking history: Never smoked Have you smoked in the past 12 months: No - Social History ADL: Independent Occupation: disabled Home Medications - Allergies Allergies/Adverse Reactions: Allergies Allergy/AdvReac Type Severity Reaction Status Date / Time Penicillins Allergy Rash Verified 11/03/18 11:49 piperacillin Allergy Rash Verified 11/03/18 11:49 - Home Medications Home Medications: Ambulatory Orders Atorvastatin Ca [Lipitor] 10 mg PO HS 09/08/17 Budesonide/Formeterol Fumarate [SYMBICORT 160/4.5mcg -] 1 inh PO BID 09/08/17 Calcitriol [Calcitriol -] 0.75 mcg PO DAILY 09/08/17 Calcium Carbonate - 2 tab PO DAILY #0 09/08/17 Ipratropium/Albuterol Sulfate [Combivent Respimat 20-100 Mcg] 4 gm IH DAILY 05/24 Albuterol Sulfate Inhaler - [Ventolin Hfa Inhaler -] 1 puff IH PRN PRN 11/03/18 Hydrocodone/Ibuprofen [VICOPROFEN 7.5/200 mg [NF MEDICATION]] 1 tab PO PRN PRN 11/03/18 Prednisone [Deltasone] 20 mg PO ASDIR 11/12/18 Family Disease History - Family Disease History Family History: Unremarkable Review of Systems - Review of Systems Constitutional: reports: No Symptoms Eyes: reports: No Symptoms HENT: reports: No Symptoms Neck: reports: No Symptoms Cardiovascular: reports: No Symptoms Respiratory: reports: SOB Gastrointestinal: reports: No Symptoms Genitourinary: reports: Incontinence Musculoskeletal: reports: Joint Pain Integumentary: reports: No Symptoms Neurological: reports: No Symptoms Endocrine: reports: No Symptoms Hematology/Lymphatic: reports: No Symptoms Psychiatric: reports: No Symptoms Pain Intensity: 7 Physical Exam Vital Signs: Vital Signs Temperature 98.9 F 11/13/18 09:39 Pulse Rate 116 H 11/13/18 09:39 Respiratory Rate 20 11/13/18 09:39 Blood Pressure 97/53 L 11/13/18 09:39 O2 Sat by Pulse Oximetry (%) 97 11/13/18 09:00 Constitutional: Yes: Well Nourished, No Distress Eyes: Yes: WNL HENT: Yes: WNL Neck: Yes: WNL Cardiovascular: Yes: WNL Respiratory: Yes: WNL Gastrointestinal: Yes: WNL Renal/: Yes: Anuria Musculoskeletal: Yes: Joint Stiffness Extremities: Yes: WNL Edema: No Integumentary: Yes: WNL Wound/Incision: Yes: Clean/Dry, Well Approximated Neurological: Yes: WNL Psychiatric: Yes: WNL Labs: CBC, BMP 11/13/18 07:33 11/13/18 07:33 Assessment/Plan 33M s/p LEFT distal femoral medial closing wedge osteotomy with instrumentation & RIGHT knee exostectomy POD #1 cont pain management. incentive spirometry. -GI, DVT prophylaxis. -Pt with leucocytosis, fever spike. ID consulted. -JAZIEL, urine output poor. asked for gomez catheter placement. renal consulted. -oral diet -PT/OT/OOB as tolerated -hypocalcemia: supplemented. -Pt to be transferred to [facility]. assessment and plan discussed with pt, his mother, medical staff. 45 min -
[2018-11-13] MEDS ORDERED: CALCIUM GLUCONATE 10% - 1,000 MG/10 ML VIAL IVPB ONE (11:39)
--- NOTE | 2018-11-13 11:47 | CON.ID ---
Consult - Past Medical History Pulmonary: Yes: Asthma - Alcohol/Substance Use Hx Alcohol Use: No History of Substance Use: reports: None - Smoking History Smoking history: Never smoked Have you smoked in the past 12 months: No - Social History ADL: Independent Occupation: disabled Home Medications - Allergies Allergies/Adverse Reactions: Allergies Allergy/AdvReac Type Severity Reaction Status Date / Time Penicillins Allergy Rash Verified 11/03/18 11:49 piperacillin Allergy Rash Verified 11/03/18 11:49 - Home Medications Home Medications: Ambulatory Orders Atorvastatin Ca [Lipitor] 10 mg PO HS 09/08/17 Budesonide/Formeterol Fumarate [SYMBICORT 160/4.5mcg -] 1 inh PO BID 09/08/17 Calcitriol [Calcitriol -] 0.75 mcg PO DAILY 09/08/17 Calcium Carbonate - 2 tab PO DAILY #0 09/08/17 Ipratropium/Albuterol Sulfate [Combivent Respimat 20-100 Mcg] 4 gm IH DAILY 05/24 Albuterol Sulfate Inhaler - [Ventolin Hfa Inhaler -] 1 puff IH PRN PRN 11/03/18 Hydrocodone/Ibuprofen [VICOPROFEN 7.5/200 mg [NF MEDICATION]] 1 tab PO PRN PRN 11/03/18 Prednisone [Deltasone] 20 mg PO ASDIR 11/12/18 Physical Exam Vital Signs: Vital Signs Temperature 98.9 F 11/13/18 09:39 Pulse Rate 116 H 11/13/18 09:39 Respiratory Rate 20 11/13/18 09:39 Blood Pressure 97/53 L 11/13/18 09:39 O2 Sat by Pulse Oximetry (%) 97 11/13/18 09:00 Labs: CBC, BMP 11/13/18 07:33 11/13/18 07:33
[2018-11-13] MEDS ORDERED: AZTREONAM 1 GM VIAL (RESTRICTED TO ID) ONE ×2 (12:31→16:05)
[2018-11-13] MEDS ORDERED: DEXTROSE 5%-WATER - 50 ML IVPB ONE ×2 (12:32→16:05)
[2018-11-13] MEDS: AZTREONAM 1 GM in DEXTROSE 5%-WATER - 50 ML IVPB SCH ×2 (12:33→18:12)
--- NOTE | 2018-11-13 14:06 | PN ---
Progress Note (short form) - Note Progress Note: POD#1 Post Bilateral knee surgery See op record Minimal pain Had analgesic 6 hrs ago. Doing well Walked in the hallway Tho brace placed on L LE Temp Elevated CVS Stable RESP Clear AE equal bilaterally ABD Soft Passing flatus Passing urine MSkeletal Bandages are both dry Drains in situ Chemistry as per chart. Did take his routine Ca medication this am Additional Ca given as per chart Similar events occurred following the last operation. Antibiotics started as per ID Renal consult arranged. Spoken to Dr Staley I suggest D/C [facility] and the transfer to [facility] Will see again tomorrow Continue fluids and return back to old med management as used at home Decide on further Antibiotics tomorrow If mobilizing well and independently D/C home with PT Will see tomorrow tn D/C drain and decide on further Mx
[2018-11-13] MEDS: ACETAMINOPHEN 325 MG TABLET (FP) PO PRN ×2 (16:09→21:21)
[2018-11-13] MEDS: ONDANSETRON 4 MG/2 ML VIAL IVPUSH PRN (17:08)
[2018-11-13] MEDS ORDERED: ALBUTEROL SO4 8 GM HFA INHALER IH PRN (20:27)
[2018-11-13] MEDS: ATORVASTATIN CA 10 MG TABLET (FP) PO SCH (21:21)
[2018-11-14] MEDS ORDERED: AZTREONAM 1 GM VIAL (RESTRICTED TO ID) ONE ×2 (01:39→09:13)
[2018-11-14] MEDS ORDERED: DEXTROSE 5%-WATER - 50 ML IVPB ONE ×2 (01:40→09:13)
[2018-11-14] MEDS: AZTREONAM 1 GM in DEXTROSE 5%-WATER - 50 ML IVPB SCH ×3 (01:45→18:00)
[2018-11-14] MEDS: ACETAMINOPHEN 325 MG TABLET (FP) PO PRN ×3 (02:26→22:45)
[2018-11-14] MEDS ORDERED: PT OWN MED DRAWER 7, Y5N ONE (09:13)
[2018-11-14] MEDS: SENNOSIDES/DOCUSATE COMBO (SENNA PLUS) TABLET (UD) PO SCH ×2 (09:22→21:44)
[2018-11-14] MEDS: ASPIRIN 81 MG CHEWABLE TABLETS PO SCH ×2 (09:24→21:44)
[2018-11-14] MEDS: CALCIUM CARBONATE 650 MG TABLET PO SCH ×3 (09:25→21:45)
[2018-11-14] MEDS: CALCITRIOL 0.25 MCG CAPSULE (FP) PO SCH (09:25)
[2018-11-14] MEDS: BUDESONIDE/FORMETEROL FUMARATE 160/4.5 mcg INHALER IH SCH ×2 (09:29→21:45)
[2018-11-14 09:34] LABS: HEMATOCRIT 30.6 % (35.4-49); HEMOGLOBIN 10.1 GM/dl (11.7-16.9); MCH 26.5 pg (25.7-33.7); MCHC 32.9 g/dl (32.0-35.9); MEAN CELL VOLUME 80.6 fl (80-96); MEAN PLT VOLUME 14.5 fl (7.5-11.1); RDW 18.5 % (11.9-15.9)
[2018-11-14] MEDS: PANTOPRAZOLE 40 MG TABLET (FP) PO SCH (10:00)
[2018-11-14 10:06] LABS: PLATELET COUNT 113 K/MM3 (134-434)
[2018-11-14 14:58] LABS: CREATININE 1.3 mg/dl (0.55-1.3); POTASSIUM 3.2 mmol/L (3.5-5.1)
[2018-11-14 15:09] LABS: CALCIUM 6.9 mg/dl (8.5-10)
--- NOTE | 2018-11-14 15:44 | PN ---
Progress Note, Physician History of Present Illness: improving still with pain - Current Medication List Current Medications: Active Medications Acetaminophen (Tylenol -) 650 mg PO Q6H PRN PRN Reason: FEVER / HEADACHE Last Admin: 11/14/18 09:21 Dose: 650 mg Al Hydroxide/Mg Hydroxide (Mylanta Oral Suspension -) 30 ml PO Q4H PRN PRN Reason: DYSPEPSIA Albuterol Sulfate (Ventolin Hfa Inhaler -) 2 puff IH Q4H PRN PRN Reason: ASTHMA Aspirin (Asa -) 81 mg PO BID [facility] Last Admin: 11/14/18 09:24 Dose: 81 mg Atorvastatin Calcium (Lipitor -) 10 mg PO HS [facility] Last Admin: 11/13/18 21:21 Dose: 10 mg Budesonide/Formoterol Fumarate (Symbicort 160/4.5mcg -) 1 puff IH BID [facility] Last Admin: 11/14/18 09:29 Dose: 1 puff Calcitriol (Rocaltrol -) 0.75 mcg PO DAILY [facility] Last Admin: 11/14/18 09:25 Dose: 0.75 mcg Calcium Carbonate (Calcium Carbonate -) 1,300 mg PO DAILY [facility] Last Admin: 11/14/18 09:25 Dose: 1,300 mg Fentanyl (Sublimaze Injection -) 50 mcg IVPUSH Q5M PRN PRN Reason: PAIN-PACU ORDER X 4 DOSES ONLY Aztreonam 1 gm/ Dextrose 50 mls @ 100 mls/hr IVPB Q8H-IV [facility]; Protocol Last Admin: 11/14/18 09:21 Dose: 100 mls/hr Magnesium Hydroxide (Milk Of Magnesia -) 30 ml PO PRN PRN PRN Reason: CONSTIPATION Oxycodone HCl (Roxicodone -) 5 mg PO Q4H PRN PRN Reason: PAIN LEVEL 1-5 Oxycodone HCl (Roxicodone -) 10 mg PO Q4H PRN PRN Reason: PAIN LEVEL 6-10 Last Admin: 11/13/18 10:48 Dose: 10 mg Pantoprazole Sodium (Protonix -) 40 mg PO DAILY [facility] Last Admin: 11/14/18 10:00 Dose: 40 mg Promethazine HCl (Phenergan Injection -) 12.5 mg IVPUSH Q6H PRN PRN Reason: NAUSEA-FOR RESCUE AFTER 15 MIN Senna/Docusate Sodium (Pericolace -) 2 tablet PO BID [facility] Last Admin: 11/14/18 09:22 Dose: 2 tablet - Objective Vital Signs: Vital Signs Temperature 98.3 F 11/14/18 14:07 Pulse Rate 111 H 11/14/18 14:07 Respiratory Rate 11/14/18 14:07 Blood Pressure 119/62 11/14/18 14:07 O2 Sat by Pulse Oximetry (%) 96 11/14/18 14:07 Constitutional: Yes: Calm Cardiovascular: Yes: Regular Rate and Rhythm Respiratory: Yes: Regular, CTA Bilaterally Gastrointestinal: Yes: Normal Bowel Sounds, Soft Musculoskeletal: Yes: WNL Extremities: Yes: Other Wound/Incision: Yes: Dressing Dry and Intact Neurological: Yes: Alert, Oriented Psychiatric: Yes: Alert, Oriented Labs: CBC, BMP 11/14/18 06:00 11/14/18 14:40 Assessment/Plan Problem List - Problems (1) JAZIEL (acute kidney injury) Code(s): N17.9 - ACUTE KIDNEY FAILURE, UNSPECIFIED (2) Hypokalemia Code(s): E87.6 - HYPOKALEMIA (3) History of knee surgery Code(s): Z98.890 - OTHER SPECIFIED POSTPROCEDURAL STATES (4) Hypoparathyroidism Code(s): E20.9 - HYPOPARATHYROIDISM, UNSPECIFIED 5 leukocytosis pln continue current mgmt monitor wbc physio nephro on case rest as per the team
--- NOTE | 2018-11-14 17:52 | PN ---
Progress Note (short form) - Note Progress Note: POD#2 Doing well Incisional pain 5/5 Walked in the hallway. Temp normal Renal function ++improved LE Drain removed No DVT Patient doing well D/C home tomorrow am
--- NOTE | 2018-11-14 18:51 | CON.NEP ---
Consult Consult Specialty:: NEPHROLOGY - History of Present Illness Chief Complaint: jaziel History of Present Illness: Asked to see this 33 year old man with a history of primary hypoparathyroidism who presented for surgical repair of knee deformities. His creatinine post op kassandra and so nephrology was called. He is maintained on calcitriol and calcium carbonate and has been ok but now his calcium is low again - History Source History Provided By: Family Member, Medical Record Limitations to Obtaining History: No Limitations - Past Medical History Pulmonary: Yes: Asthma Endocrine: Yes: Other (hypoparathyroidism) - Alcohol/Substance Use Hx Alcohol Use: No History of Substance Use: reports: None - Smoking History Smoking history: Never smoked Have you smoked in the past 12 months: No - Social History ADL: Independent Occupation: disabled Home Medications - Allergies Allergies/Adverse Reactions: Allergies Allergy/AdvReac Type Severity Reaction Status Date / Time Penicillins Allergy Severe Rash Verified 11/14/18 14:52 oxycodone Allergy Verified 11/14/18 14:51 piperacillin Allergy Rash Verified 11/03/18 11:49 - Home Medications Home Medications: Ambulatory Orders Atorvastatin Ca [Lipitor] 10 mg PO HS 09/08/17 Budesonide/Formeterol Fumarate [SYMBICORT 160/4.5mcg -] 1 inh PO BID 09/08/17 Calcitriol [Calcitriol -] 0.75 mcg PO DAILY 09/08/17 Calcium Carbonate - 2 tab PO DAILY #0 09/08/17 Ipratropium/Albuterol Sulfate [Combivent Respimat 20-100 Mcg] 4 gm IH DAILY 05/24 Albuterol Sulfate Inhaler - [Ventolin Hfa Inhaler -] 1 puff IH PRN PRN 11/03/18 Hydrocodone/Ibuprofen [VICOPROFEN 7.5/200 mg [NF MEDICATION]] 1 tab PO PRN PRN 11/03/18 Prednisone [Deltasone] 20 mg PO ASDIR 11/12/18 Review of Systems - Review of Systems Constitutional: reports: No Symptoms Eyes: reports: No Symptoms HENT: reports: No Symptoms Neck: reports: No Symptoms Cardiovascular: reports: No Symptoms Respiratory: reports: No Symptoms Gastrointestinal: reports: No Symptoms Genitourinary: reports: No Symptoms Breasts: reports: No Symptoms Reported Musculoskeletal: reports: Extremity Pain, Joint Pain Integumentary: reports: No Symptoms Neurological: reports: No Symptoms Endocrine: reports: No Symptoms Hematology/Lymphatic: reports: No Symptoms Psychiatric: reports: No Symptoms Nephrology Consult - Height Height: 5 ft 7 in - Weight Weight: 238 lb - BMI Body Mass Index (BMI): 37.3 - Lab Results CBC,BMP: CBC, BMP 11/14/18 06:00 11/14/18 14:40 Anion Gap: Anion Gap Anion Gap 8 MMOL/L (8-16) 11/14/18 14:40 - Imaging Cat Scan: Report Reviewed (no pulmonary embolus) - Physical Examination Vital Signs: Vital Signs Temperature 98.3 F 11/14/18 14:07 Pulse Rate 111 H 11/14/18 14:07 Respiratory Rate 19 11/14/18 14:07 Blood Pressure 119/62 11/14/18 14:07 O2 Sat by Pulse Oximetry (%) 96 11/14/18 14:07 Assessment/Plan IMPRESSION Pt had JAZIEL which is likely multifactorial and due to relative hypotension and perhaps some toxicity. I doubt the contrast study affected him since his creat is better today. Perhaps had transient retention from anesthesia. He also has hypoparathyroidism since and needs to control his calcium PLAN await renal sono repeat labs in am and if better or stable, ok to dc from renal perspective increase calcitriol to 1 mcg daily increase calcium carbonate to bid MV
[2018-11-14] MEDS ORDERED: CALCITRIOL 0.25 MCG CAPSULE (FP) PO SCH (19:03)
[2018-11-14] MEDS: ATORVASTATIN CA 10 MG TABLET (FP) PO SCH (21:44)
[2018-11-15] MEDS ORDERED: AZTREONAM 1 GM VIAL (RESTRICTED TO ID) ONE ×2 (01:53→09:12)
[2018-11-15] MEDS ORDERED: DEXTROSE 5%-WATER - 50 ML IVPB ONE ×2 (01:54→09:12)
[2018-11-15] MEDS: AZTREONAM 1 GM in DEXTROSE 5%-WATER - 50 ML IVPB SCH ×2 (02:12→10:01)
[2018-11-15] MEDS: ACETAMINOPHEN 325 MG TABLET (FP) PO PRN ×2 (03:50→10:00)
[2018-11-15 07:51] LABS: ALBUMIN 2.6 g/dl (3.4-5.0); BILIRUBIN,TOTAL 0.7 mg/dl (0.2-1); CALCIUM 7.2 mg/dl (8.5-10); CREATININE 0.9 mg/dl (0.55-1.3); TOT PROT 5.2 g/dl (6.4-8.2)
[2018-11-15 07:55] LABS: POTASSIUM 2.9 mmol/L (3.5-5.1)
[2018-11-15] MEDS ORDERED: POTASSIUM CHLORIDE TABS 20 MEQ TABLET.ER (FP) PO ONE ×4 (08:45→16:51)
[2018-11-15] MEDS ORDERED: PT OWN MED DRAWER 7, Y5N ONE (09:12)
--- NOTE | 2018-11-15 09:16 | PN ---
Progress Note (short form) - Note Progress Note: POD#3 PT states that his pain level is at 4 to 5. No cp/sob. Voiding without difficulty. Had a BM this am. Vital Signs Period Temp Pulse Resp BP Sys/Ortiz Pulse Ox Last 24 Hr 98.0 F-99.4 F 90-120 16-19 110-123/50-72 93-99 GEN: A&0x3, NAD CV: RRR Lungs: CTA b/l ABD: soft, non-distended, non-tender LE: 5/5 dorsi/plantar flexion b/l. Teds in place. No calf tenderess or swelling. Left knee dressing c/d/i. Right knee with MALGORZATA wrap/dry. CBC, BMP 11/14/ 06:00 11/15/ 06:53 A/p: 33 yo male s/p Left distal femur supracondylar medial closing wedge osteotomy and fixation with bone graft. 2. Right knee exostectomy Planning for discharge to home with PT services if pt medically cleared. Hypokalemia-K 2.9 today/repleted with 40meq KDUR. Repeat K today as well as cbc at 1400. Plan for renal ultrasound today ID follow up, pt on Aztreonam. He remains afebrile with leukocytosis. CT scan-negative for PE. continue aspirin 81 mg BID for DVT ppx OOB and ambulate with PT. Brace while oob to chair/ambulating. D/w Dr. Vogel
[2018-11-15] MEDS ORDERED: traMADol HCL 50 MG TABLET PO PRN (09:50)
[2018-11-15] MEDS: ASPIRIN 81 MG CHEWABLE TABLETS PO SCH (10:00)
[2018-11-15] MEDS: SENNOSIDES/DOCUSATE COMBO (SENNA PLUS) TABLET (UD) PO SCH (10:00)
[2018-11-15] MEDS: BUDESONIDE/FORMETEROL FUMARATE 160/4.5 mcg INHALER IH SCH (10:01)
[2018-11-15] MEDS: CALCIUM CARBONATE 650 MG TABLET PO SCH (10:01)
[2018-11-15] MEDS: PANTOPRAZOLE 40 MG TABLET (FP) PO SCH (10:01)
--- NOTE | 2018-11-15 10:46 | PN ---
Progress Note, Physician History of Present Illness: Pt seen and examined at bedside. He is awake and alert. He denies shortness of breath. - Current Medication List Current Medications: Active Medications Acetaminophen (Tylenol -) 650 mg PO Q6H PRN PRN Reason: FEVER / HEADACHE Last Admin: 11/15/18 10:00 Dose: 650 mg Al Hydroxide/Mg Hydroxide (Mylanta Oral Suspension -) 30 ml PO Q4H PRN PRN Reason: DYSPEPSIA Albuterol Sulfate (Ventolin Hfa Inhaler -) 2 puff IH Q4H PRN PRN Reason: ASTHMA Aspirin (Asa -) 81 mg PO BID [facility] Last Admin: 11/15/18 10:00 Dose: 81 mg Atorvastatin Calcium (Lipitor -) 10 mg PO HS [facility] Last Admin: 11/14/18 21:44 Dose: 10 mg Budesonide/Formoterol Fumarate (Symbicort 160/4.5mcg -) 1 puff IH BID [facility] Last Admin: 11/15/18 10:01 Dose: 1 puff Calcitriol (Rocaltrol -) 1 mcg PO DAILY [facility] Last Admin: 11/15/18 09:57 Dose: 1 mcg Calcium Carbonate (Calcium Carbonate -) 1,300 mg PO BID [facility] Last Admin: 11/15/18 10:01 Dose: 1,300 mg Aztreonam 1 gm/ Dextrose 50 mls @ 100 mls/hr IVPB Q8H-IV [facility]; Protocol Last Admin: 11/15/18 10:01 Dose: 100 mls/hr Magnesium Hydroxide (Milk Of Magnesia -) 30 ml PO PRN PRN PRN Reason: CONSTIPATION Pantoprazole Sodium (Protonix -) 40 mg PO DAILY [facility] Last Admin: 11/15/18 10:01 Dose: 40 mg Senna/Docusate Sodium (Pericolace -) 2 tablet PO BID [facility] Last Admin: 11/15/18 10:00 Dose: 2 tablet Tramadol HCl (Ultram -) 50 mg PO Q6H PRN PRN Reason: PAIN LEVEL 4 - 6 - Objective Vital Signs: Vital Signs Temperature 98.3 F 11/15/18 09:00 Pulse Rate 90 11/15/18 09:00 Respiratory Rate 18 11/15/18 09:00 Blood Pressure 110/72 11/15/18 09:00 O2 Sat by Pulse Oximetry (%) 99 11/15/18 09:00 Constitutional: Yes: Calm Eyes: Yes: Conjunctiva Clear HENT: Yes: Atraumatic Neck: Yes: Supple Cardiovascular: Yes: S1, S2 Respiratory: Yes: CTA Bilaterally Gastrointestinal: Yes: Soft Genitourinary: Yes: WNL Musculoskeletal: Yes: Other (knee pain) Edema: No Neurological: Yes: Oriented Psychiatric: Yes: Oriented Labs: CBC, BMP 11/14/18 06:00 11/15/18 06:53 Problem List - Problems (1) JAZIEL (acute kidney injury) Code(s): N17.9 - ACUTE KIDNEY FAILURE, UNSPECIFIED (2) Hypokalemia Code(s): E87.6 - HYPOKALEMIA (3) History of knee surgery Code(s): Z98.890 - OTHER SPECIFIED POSTPROCEDURAL STATES (4) Hypoparathyroidism Code(s): E20.9 - HYPOPARATHYROIDISM, UNSPECIFIED Assessment/Plan Current Medications Generic Name Dose Route Start Last Admin Trade Name Freq PRN Reason Stop Dose Admin Acetaminophen 650 mg 11/13/18 07:22 11/15/18 10:00 Tylenol - PO 650 mg Q6H PRN Administration FEVER / HEADACHE Al Hydroxide/Mg Hydroxide 30 ml 11/12/18 15:08 Mylanta Oral Suspension - PO Q4H PRN DYSPEPSIA Albuterol Sulfate 2 puff 11/13/18 20:27 Ventolin Hfa Inhaler - IH Q4H PRN ASTH[facility] Aspirin 81 mg 11/12/18 22:00 11/15/18 10:00 Asa - PO 81 mg BID [facility] Administration Atorvastatin Calcium 10 mg 11/12/18 22:00 11/14/18 21:44 Lipitor - PO 10 mg HS [facility] Administration Budesonide/Formoterol Fumarate 1 puff 11/12/18 22:00 11/15/18 10:01 Symbicort 160/4.5mcg - IH 1 puff BID [facility] Administration Calcitriol 1 mcg 11/14/18 19:03 11/15/18 09:57 Rocaltrol - PO 1 mcg DAILY [facility] Administration Calcium Carbonate 1,300 mg 11/14/18 19:15 11/15/18 10:01 Calcium Carbonate - PO 1,300 mg BID [facility] Administration Aztreonam 1 gm/ Dextrose 50 mls @ 100 mls/hr 11/13/18 12:00 11/15/18 10:01 IVPB 100 mls/hr Q8H-IV [facility] Administration Protocol Magnesium Hydroxide 30 ml 11/12/18 15:08 Milk Of Magnesia - PO PRN PRN CONSTIPATION Pantoprazole Sodium 40 mg 11/13/18 10:00 11/15/18 10:01 Protonix - PO 40 mg DAILY [facility] Administration Senna/Docusate Sodium 2 tablet 11/12/18 22:00 11/15/18 10:00 Pericolace - PO 2 tablet BID [facility] Administration Tramadol HCl 50 mg 11/15/18 09:50 Ultram - PO Q6H PRN PAIN LEVEL 4 - 6 Impression 1. JAZIEL resolving 2. hypokalemia 3. hypoparathyroidism Plan - calcium improving - cont calcitriol and caclium supplements - replace potassium - check mag - repeat labs before he is discharged - keep off of fluids for now, he is tolerating diet
[2018-11-15] MEDS ORDERED: MAGNESIUM SULF 50% (8.12 MEQ/2 ML-1 GM VIAL) IVPB ONE (11:55)
[2018-11-15] MEDS ORDERED: MAGNESIUM OXIDE 400 MG TABLET (FP) PO SCH (12:00)
--- NOTE | 2018-11-15 12:51 | PN ---
Progress Note, Physician History of Present Illness: patient stable looks much better - Current Medication List Current Medications: Active Medications Acetaminophen (Tylenol -) 650 mg PO Q6H PRN PRN Reason: FEVER / HEADACHE Last Admin: 11/15/18 10:00 Dose: 650 mg Al Hydroxide/Mg Hydroxide (Mylanta Oral Suspension -) 30 ml PO Q4H PRN PRN Reason: DYSPEPSIA Albuterol Sulfate (Ventolin Hfa Inhaler -) 2 puff IH Q4H PRN PRN Reason: ASTHMA Aspirin (Asa -) 81 mg PO BID [facility] Last Admin: 11/15/18 10:00 Dose: 81 mg Atorvastatin Calcium (Lipitor -) 10 mg PO HS [facility] Last Admin: 11/14/18 21:44 Dose: 10 mg Budesonide/Formoterol Fumarate (Symbicort 160/4.5mcg -) 1 puff IH BID [facility] Last Admin: 11/15/18 10:01 Dose: 1 puff Calcitriol (Rocaltrol -) 1 mcg PO DAILY [facility] Last Admin: 11/15/18 09:57 Dose: 1 mcg Calcium Carbonate (Calcium Carbonate -) 1,300 mg PO BID [facility] Last Admin: 11/15/18 10:01 Dose: 1,300 mg Aztreonam 1 gm/ Dextrose 50 mls @ 100 mls/hr IVPB Q8H-IV [facility]; Protocol Last Admin: 11/15/18 10:01 Dose: 100 mls/hr Magnesium Hydroxide (Milk Of Magnesia -) 30 ml PO PRN PRN PRN Reason: CONSTIPATION Magnesium Oxide (Mag-Ox -) 400 mg PO BID [facility] Magnesium Sulfate (Magnesium Sulfate) 1 gm IVPB ONCE ONE Stop: 11/15/18 11:56 Pantoprazole Sodium (Protonix -) 40 mg PO DAILY [facility] Last Admin: 11/15/18 10:01 Dose: 40 mg Senna/Docusate Sodium (Pericolace -) 2 tablet PO BID [facility] Last Admin: 11/15/18 10:00 Dose: 2 tablet Tramadol HCl (Ultram -) 50 mg PO Q6H PRN PRN Reason: PAIN LEVEL 4 - 6 - Objective Vital Signs: Vital Signs Temperature 98.3 F 11/15/18 09:00 Pulse Rate 90 11/15/18 09:00 Respiratory Rate 18 11/15/18 09:00 Blood Pressure 110/72 11/15/18 09:00 O2 Sat by Pulse Oximetry (%) 99 11/15/18 09:00 Constitutional: Yes: No Distress, Calm Cardiovascular: Yes: S1, S2 Respiratory: Yes: Regular, CTA Bilaterally Gastrointestinal: Yes: Normal Bowel Sounds, Soft Musculoskeletal: Yes: WNL Extremities: Yes: WNL Wound/Incision: Yes: Dressing Dry and Intact Neurological: Yes: Alert, Oriented Psychiatric: Yes: Alert, Oriented Labs: CBC, BMP 11/14/18 06:00 11/15/18 06:53 Assessment/Plan Problem List - Problems (1) JAZIEL (acute kidney injury) Code(s): N17.9 - ACUTE KIDNEY FAILURE, UNSPECIFIED (2) Hypokalemia Code(s): E87.6 - HYPOKALEMIA (3) History of knee surgery Code(s): Z98.890 - OTHER SPECIFIED POSTPROCEDURAL STATES (4) Hypoparathyroidism Code(s): E20.9 - HYPOPARATHYROIDISM, UNSPECIFIED 5 leukocytosis pln continue current mgmt monitor wbc physio nephro on case rest as per the team if wbc normalizes can stop abx and monitor
[2018-11-15] MEDS ORDERED: MAGNESIUM 1GM/D5W - 1 GM/100 ML IVPB IVPB ONE (13:00)
[2018-11-15 14:02] VITALS: BP 130/57; PULSE 110; TEMP 98.7
[2018-11-15 14:18] LABS: CALCIUM 7.3 mg/dl (8.5-10); MAGNESIUM 1.6 mg/dL (1.8-2.4); POTASSIUM 3.3 mmol/L (3.5-5.1)
--- NOTE | 2018-11-15 14:28 | DS ---
"Physical Exam: SUBJECTIVE: Patient seen and examined. OBJECTIVE: Vital Signs Period Temp Pulse Resp BP Sys/Ortiz Pulse Ox Last 24 Hr 98.0 F-99.4 F 90-120 16-18 110-130/50-72 93-99 PHYSICAL EXAM GENERAL: The patient is awake, alert, and fully oriented, in no acute distress. LUNGS: Breath sounds equal, clear to auscultation bilaterally, no wheezes, no crackles, no accessory muscle use. HEART: Regular rate and rhythm, S1, S2 without murmur, rub or gallop. ABDOMEN: Soft, nontender, nondistended EXTREMITIES: 5/5 dorsi/plantar flexion b/l. Teds in place. No calf tenderess or swelling. Left knee dressing c/d/i. Right knee with MALGORZATA wrap/dry. NEUROLOGICAL: Cranial nerves II through XII grossly intact. Normal speech, gait not observed. LABS CBCD WBC 11.8 K/mm3 (4.0-10.8) H 11/15/18 16:13 RBC 4.11 M/mm3 (4.00-5.60) 11/15/18 16:13 Hgb 10.6 GM/dl (11.7-16.9) L 11/15/18 16:13 Hct 32.9 % (35.4-49) L 11/15/18 16:13 MCV 80.2 fl (80-96) 11/15/18 16:13 MCHC 32.1 g/dl (32.0-35.9) 11/15/18 16:13 RDW 18.8 % (11.9-15.9) H 11/15/18 16:13 Plt Count 95 K/MM3 (134-434) L 11/15/18 16:13 MPV 10.3 fl (7.5-11.1) D 11/15/18 16:13 CMP Sodium 139 mmol/L (136-145) 11/15/18 16:13 Potassium 3.4 mmol/L (3.5-5.1) L 11/15/18 16:13 Chloride 104 mmol/L (98-107) 11/15/18 16:13 Carbon Dioxide 28 mmol/L (21-32) 11/15/18 16:13 Anion Gap 7 MMOL/L (8-16) L 11/15/18 16:13 BUN 10.0 mg/dl (7-18) 11/15/18 16:13 Creatinine 0.9 mg/dl (0.55-1.3) 11/15/18 16:13 Calcium 7.5 mg/dl (8.5-10) L 11/15/18 16:13 Total Bilirubin 0.7 mg/dl (0.2-1) 11/15/18 06:53 AST 22 U/L (15-37) 11/15/18 06:53 ALT 25 U/L (13-61) 11/15/18 06:53 Alkaline Phosphatase 56 U/L (45-117) 11/15/18 06:53 Total Protein 5.2 g/dl (6.4-8.2) L 11/15/18 06:53 Albumin 2.6 g/dl (3.4-5.0) L 11/15/18 06:53 HOSPITAL COURSE: Date of Admission:11/12/18 Date of Discharge: 11/15/18 33 year-old male with a PMH significant for primary hypoparathyroidism, left knee valgus deformity and right knee exostosis. Patient is s/p LEFT distal femoral medical closing wedge osteotomy with instrumentation, and RIGHT knee exotectomy on 11/12/[address] Vogel. Post-operative course complicated by elevation in serum creatinine, likely multifactorial due to relative hypotension and transient retention from anesthesia. US exam of kidneys was unremarkable, and serum creatinine level wnl at time of dishcarge. Hemovac drain was dc'd on 11/14. Patient has Tho brace, walker, crutches. Patient is going home with VNS and physical therapy. ASA 81mg BID x 6 weeks Minutes to complete discharge: 35 Discharge Summary Reason For Visit: SUPRACONDYLAR OSTEOTOMY Current Active Problems JAZIEL (acute kidney injury) (Acute) Hypokalemia (Acute) Condition: Improved - Instructions Diet, Activity, Other Instructions: Dr. Vogel Discharge Instructions for Knee Replacement Post Operative Instructions Physical activity Physical Therapist will come to your home for the first 5 days. You will be set up with outpatient PT at your first post-operative visit. Use assistive devices for ambulation at all times. Weight bearing as tolerated on your surgical side. Do not put pillow under knee. May put pillow under heel. Wound care Leave your surgical dressing in place. Do not change the dressing until seen by your surgeon in the office. No baths or showers. Do not submerge your incision. Do not apply any ointments or lotions to your incision. Please call the office if your dressing is soiled/dirty or is falling off. Apply Graduated Compression Stockings (TEDS) to both lower extremities - remove daily for hygiene ONLY. Please wear your left leg brace at all times when oob to the chair/ambulating. You may remove it during the night to sleep. Diet There are no dietary restrictions. Eat healthy, high-fiber foods. Drink 6 to 8 glasses of liquid each day. This will assist in keeping your bowels are regular. Pain management Any pain prescription medication ordered should be taken as prescribed for moderate to severe pain. Do not take additional Tylenol while taking Percocet. Take Aspirin 81 mg two times a day for a total of 6 weeks to prevent blood clots. Call Dr. Vogel for any of the following: Severe pain not relieved by medication Fever of 101 or higher Excessive bleeding or drainage on dressing Inability to urinate If you experience chest pain or shortness of breath, please seek emergency care immediately. Please call the office at to confirm your post-op appointment for the week following surgery. This report was requested by: Farideh Lopez | Reference #: [id number] 09/27/2018 09/28/2018 hydrocodone-ibuprofen 7.5-200 30 30 Wesley Vogel MS, MD Referrals: Wesley Vogel MD [Staff Physician] - Disposition: HOME - Home Medications Comprehensive Discharge Medication List: Ambulatory Orders Atorvastatin Ca [Lipitor] 10 mg PO HS 09/08/17 Budesonide/Formeterol Fumarate [SYMBICORT 160/4.5mcg -] 1 inh PO BID 09/08/17 Calcitriol [Calcitriol -] 0.75 mcg PO DAILY 09/08/17 Calcium Carbonate - 2 tab PO DAILY #0 09/08/17 Ipratropium/Albuterol Sulfate [Combivent Respimat 20-100 Mcg] 4 gm IH DAILY 05/24 Albuterol Sulfate Inhaler - [Ventolin Hfa Inhaler -] 1 puff IH PRN PRN 11/03/18 Hydrocodone/Ibuprofen [VICOPROFEN 7.5/200 mg [NF MEDICATION]] 1 tab PO PRN PRN 11/03/18 Prednisone [Deltasone] 20 mg PO ASDIR 11/12/18 Docusate Sodium [Colace -] 100 mg PO BID PRN #14 capsule 11/15/18 Hydrocodone/Acetaminophen [Scio 7.5-325 Tablet] 1 each PO Q4H PRN #30 tablet MDD 6 11/15/18 This patient is new to me today: Yes Date on this admission: 11/16/18 Emergency Visit: No Critical Care patient: No - Discharge Referral Referred to [facility] No"
[2018-11-15 16:22] LABS: HEMOGLOBIN 10.6 GM/dl (11.7-16.9); RBC 4.11 M/mm3 (4.00-5.60)
[2018-11-15 16:40] LABS: HEMATOCRIT 32.9 % (35.4-49); MCH 25.7 pg (25.7-33.7); MCHC 32.1 g/dl (32.0-35.9); MEAN CELL VOLUME 80.2 fl (80-96); MEAN PLT VOLUME 10.3 fl (7.5-11.1); PLATELET COUNT 95 K/MM3 (134-434); RDW 18.8 % (11.9-15.9); WHITE BLOOD COUNT 11.8 K/mm3 (4.0-10.8)
[2018-11-15 16:44] LABS: CALCIUM 7.5 mg/dl (8.5-10); CREATININE 0.9 mg/dl (0.55-1.3); MAGNESIUM 1.9 mg/dL (1.8-2.4); POTASSIUM 3.4 mmol/L (3.5-5.1)
[2018-11-15 19:04] LABS: ANISOCYTOSIS 2+
--- NOTE | 2018-11-29 10:35 | PATH ---
Surgical Pathology Report Patient Name: CASEY ZUNIGA Med. Rec. #: [id number] /Age/Gender: 1985 (Age: 33) / M Account: [id number] Location: [facility] Taken: 11/12/2018 Received: 11/12/2018 Reported: 11/29/2018 Physicians: Wesley Vogel M.D. Specimen(s) Received RIGHT KNEE EXOSTOSIS Clinical History Left valgus knee and dislocated patella Right knee osteochondroma and tibial band Final Diagnosis Knee, right, exostosis: OSTEOCHONDROMA (EXOSTOSIS). Electronically Signed Genesis Steeel M.D. Gross Description Received in formalin, labeled "right knee exostosis" are four portions of cartilaginous to bony tissue, ranging from 0.5-2.7 cm in greatest dimension. The largest fragment has a fabian lobulated appearance. Entirely submitted in two cassettes following decalcification (with the largest portion #2). AE/11/16/2018 ebram/11/16/2018
== END 2018-11-15 18:10 | disposition home or self-care (01) | DRG 481 ==
LOC: FM/S 09:38 → EDSTATUS 11:00 → FM/S 15:48
PROVIDERS: ADMIT Orthopaedic Surgery Orthopaedic Surgery of the Spine; ATTEND Orthopaedic Surgery Orthopaedic Surgery of the Spine
PROC: 0QRC07Z Replacement of Left Lower Femur with Autologous Tissue Substitute, Open Approach (ICD-10-PCS; 2018-11-12)
PROC: 0YB Anatomical Regions, Lower Extremities, Excision (ICD-10-PCS; 2018-11-12)
PROC: 0QSC04Z Reposition Left Lower Femur with Internal Fixation Device, Open Approach (ICD-10-PCS; principal; 2018-11-12 12:11)
DX: M21.062 Valgus deformity, not elsewhere classified, left knee (principal); N17.9 Acute kidney failure, unspecified; M22.02 Recurrent dislocation of patella, left knee; E20.9 Hypoparathyroidism, unspecified; M93.861 Other specified osteochondropathies, right lower leg; D72.829 Elevated white blood cell count, unspecified; R50.82 Postprocedural fever; E83.51 Hypocalcemia; E87.6 Hypokalemia; J45.909 Unspecified asthma, uncomplicated; M89.9 Disorder of bone, unspecified; I95.9 Hypotension, unspecified; Z88.0 Allergy status to penicillin
CPT/HCPCS: 36415; 71260-TC; 73560-TC-LT-FY; 76775-TC; 80048; 80053; 83735; 85025; 85027; 88305-TC; 88311-TC; 94760; 97116-GP; 97162-GP

== ENCOUNTER 2019-10-14 04:36 | Day surgery (SDC) | payer OTHER ==
[2019-10-11 10:52] VITALS: BMI 36.0
[2019-10-14] MEDS ORDERED: ceFAZolin SODIUM 1 GM VIAL ONE (09:36)
[2019-10-14] MEDS ORDERED: MIDAZOLAM HCL 2 MG/2 ML SINGLE DOSE VIAL ONE (09:36)
[2019-10-14] MEDS ORDERED: SODIUM CHLORIDE 0.9% P/F 10 ML VIAL IJ ONE (09:36)
[2019-10-14] MEDS ORDERED: LIDOCAINE HCL/PF 2% SDV 5ML VIAL ONE (09:36)
[2019-10-14] MEDS ORDERED: PROPOFOL 20 ML ONE ×2 (09:36)
[2019-10-14] MEDS ORDERED: methylPREDNISolone ACET (DEPO) 40 MG/1 ML VIAL ONE (09:51)
[2019-10-14] MEDS ORDERED: BUPIVACAINE HCL/PF 0.25% (2.5MG/ML) 10 ML VIAL ONE (09:52)
[2019-10-14] MEDS ORDERED: ONDANSETRON 4 MG/2 ML VIAL IVPUSH PRN (09:54)
[2019-10-14] MEDS ORDERED: LACTATED RINGERS SOLUTION 1,000 ML IV SCH (10:00)
[2019-10-14] MEDS ORDERED: DEXAMETHASONE SOD PHOSPHATE 4 MG/1 ML VIAL ONE (10:02)
[2019-10-14] MEDS ORDERED: KETOROLAC TROMETHAMINE 30 MG/1 ML VIAL ONE (10:02)
[2019-10-14] MEDS ORDERED: BUPIVACAINE HCL/PF 0.25% (2.5MG/ML) 10 ML VIAL IJ ONE (10:55)
[2019-10-14] MEDS ORDERED: methylPREDNISolone ACET (DEPO) 40 MG/1 ML VIAL IM ONE (10:55)
[2019-10-14 12:30] VITALS: BP 138/84; PULSE 78; TEMP 98
--- NOTE | 2019-10-14 13:14 | OP ---
DATE OF OPERATION: 10/14/2019 SURGEON: Wesley Vogel MD ANESTHESIA: Lyndon Dumont MD PREOPERATIVE DIAGNOSIS: Loose body, possible medial meniscus tear, left knee, following a previous supracondylar osteotomy. POSTOPERATIVE DIAGNOSIS: Left medial meniscal tear (flapping into joint). OPERATION PERFORMED: 1. Arthroscopy, left knee with partial medial meniscectomy (04798) 2. Washout of loose bodies. OPERATION DETAILS: Patient correctly identified, brought to the operating room, placed supine on the operating table. Left knee was flexed 90 degrees. Leg vee utilized, tourniquet applied. The left lower extremity was prepped and draped in the routine manner with Betadine scrub solution, wiped off with alcohol, DuraPrep applied. Imaging was available for intraoperative evaluation. Timeout was called. Preoperative antibiotics were given, 2 g of Ancef. Patient in supine position, the left lower extremity was free draped. The standard anterolateral portal was utilized. The knee joint revealed at arthroscopy normal-appearing synovium except for fibrillar changes which were chronic fibrosis, but no acute synovitis seen, either diffuse or patchy. The medial femoral condyle revealed the presence of a relatively normal-looking medial femoral condyle. Very early Outerbridge changes were noted. I would label these as Outerbridge I-II, most of the level I, which is readily noted by palpating the hyaline cartilage with an elbow probe which revealed softening of the cartilage more. This is a subjective evaluation on my part, and this slightly irregularity on the hyaline cartilage made me come to that classification diagnosis. The medial meniscus, posterior horn had a fibrillar parrot beak-type tear which was flapping in and out of the joint. This appeared to be the cause of his instability of the knee. The loose bodies were readily noted throughout the knee, and these were readily washed out through a separate cannula. The medial meniscus was then dealt with with a shaver. This was a 3.5 shaver and shaved the parrot beak tear completely flush with the rest of the body of the meniscus. The wound was thoroughly lavaged. Marcaine sterilely instilled into the joint, and the portals were closed with 3-0 nylon. Operation went well, no complications. MD DON [id number] [facility]
--- NOTE | 2019-10-14 14:17 | OP ---
Operative Note - Note: Operative Date: 10/14/19 Pre-Operative Diagnosis: Medial meniscal tear R Knee Operation: R arthroscopic removal loose and partial medial meniscectomy Post-Operative Diagnosis: Same as Pre-op Surgeon: Wesley Vogel Anesthesia: General Specimens Removed: Loose bodies and partial medial meniscectomy Fluid Volume Replaced (mls): 1,000 Operative Report Dictated: Yes
== END 2019-10-14 13:15 | disposition home or self-care (01) ==
LOC: JASU-SURG 04:36
PROVIDERS: ATTEND Orthopaedic Surgery Orthopaedic Surgery of the Spine
PROC: 0SBD4ZZ Excision of Left Knee Joint, Percutaneous Endoscopic Approach (ICD-10-PCS; principal; 2019-10-14 10:30)
DX: M23.222 Derangement of posterior horn of medial meniscus due to old tear or injury, left knee (principal)
CPT/HCPCS: 87070; 87075; 87205; 89060; 94760

== ENCOUNTER 2020-03-16 08:03 | Day surgery (SDC) | payer OTHER ==
[2020-03-12 14:05] VITALS: BMI 35.4
[2020-03-16] MEDS ORDERED: ROPIVACAINE HCL 0.5% 30ML VIAL ONE (10:36)
[2020-03-16] MEDS ORDERED: MIDAZOLAM HCL 2 MG/2 ML SINGLE DOSE VIAL ONE (10:38)
[2020-03-16] MEDS ORDERED: BUPIVACAINE HCL/PF 0.25% (2.5MG/ML) 10 ML VIAL ONE (10:52)
[2020-03-16] MEDS ORDERED: PROPOFOL 20 ML ONE ×5 (10:54→11:26)
[2020-03-16] MEDS ORDERED: BUPIVACAINE HCL/PF 0.25% (2.5MG/ML) 10 ML VIAL IJ ONE (12:14)
[2020-03-16 13:52] VITALS: TEMP 98.1
[2020-03-16 13:53] VITALS: BP 151/89; PULSE 84
== END 2020-03-16 14:00 | disposition home or self-care (01) ==
LOC: FASU 08:03
PROVIDERS: ATTEND Orthopaedic Surgery Orthopaedic Surgery of the Spine
PROC: 0JBF0ZZ Excision of Left Upper Arm Subcutaneous Tissue and Fascia, Open Approach (ICD-10-PCS; 2020-03-16)
PROC: 0L840ZZ Division of Left Upper Arm Tendon, Open Approach (ICD-10-PCS; principal; 2020-03-16 11:09)
DX: M77.12 Lateral epicondylitis, left elbow (principal)
CPT/HCPCS: 94760

== ENCOUNTER 2020-10-12 06:11 | Day surgery (SDC) | payer OTHER ==
[2020-10-01 12:50] VITALS: BMI 36.0
[2020-10-12] MEDS ORDERED: BUPIVACAINE HCL/PF 0.25% (2.5MG/ML) 10 ML VIAL ONE (07:23)
[2020-10-12] MEDS ORDERED: TRIAMCINOLONE ACET 40MG/1ML VIAL ONE (07:23)
[2020-10-12] MEDS ORDERED: MIDAZOLAM HCL 2 MG/2 ML SINGLE DOSE VIAL ONE (07:34)
[2020-10-12] MEDS ORDERED: LIDOCAINE HCL/PF 2% SDV 5ML VIAL ONE (07:34)
[2020-10-12] MEDS ORDERED: PROPOFOL 20 ML ONE ×2 (07:34)
[2020-10-12] MEDS ORDERED: ceFAZolin SODIUM 1 GM VIAL ONE (07:59)
[2020-10-12] MEDS ORDERED: ONDANSETRON 4 MG/2 ML VIAL ONE (08:14)
[2020-10-12] MEDS ORDERED: ONDANSETRON 4 MG/2 ML VIAL IVPUSH PRN (09:11)
[2020-10-12] MEDS ORDERED: IBUPROFEN 800 MG/8 ML IJ IVPB PRN (09:11)
[2020-10-12] MEDS ORDERED: LACTATED RINGERS SOLUTION 1,000 ML IV SCH (09:15)
[2020-10-12 10:57] VITALS: BP 130/80; PULSE 82; TEMP 97.8
== END 2020-10-12 10:57 | disposition home or self-care (01) ==
LOC: FASU 06:11
PROVIDERS: ATTEND Orthopaedic Surgery Orthopaedic Surgery of the Spine
PROC: 0SCD4ZZ Extirpation of Matter from Left Knee Joint, Percutaneous Endoscopic Approach (ICD-10-PCS; principal; 2020-10-12 13:00)
DX: M23.42 Loose body in knee, left knee (principal)
CPT/HCPCS: 94760